=== PATIENT | male | born 1950 | race Caucasian/White ===

== ENCOUNTER → 2023-12-14 08:23 | Outpatient (REF) | payer MEDICARE, OTHER, SELFPAY | LOC: RCS 08:23 | PROVIDERS: ATTENDING PHYSICIAN Internal Medicine Cardiovascular Disease; FAMILY PHYSICIAN Family Medicine | DX: I25.10 Atherosclerotic heart disease of native coronary artery without angina pectoris (principal) | CPT/HCPCS: 93017; 93350 ==

== ENCOUNTER → 2025-01-02 08:02 | Outpatient (REF) | payer MEDICARE, OTHER, SELFPAY | LOC: RCS 08:02 | PROVIDERS: ATTENDING PHYSICIAN Internal Medicine Cardiovascular Disease; FAMILY PHYSICIAN Family Medicine | DX: I35.0 Nonrheumatic aortic (valve) stenosis (principal) | CPT/HCPCS: 93306 ==

== ENCOUNTER → 2025-01-15 10:49 | Outpatient (REF) | payer MEDICARE, OTHER, SELFPAY ==
[2025-01-15 11:14] LABS: Hematocrit 43.4 % (39.0-52.0); Hemoglobin 15.1 g/dL (13.0-18.0); Mean Corp Hgb Conc. 34.8 g/dL (33.0-37.0); Mean Corpuscular Volume 88.8 fL (80.0-94.0); Nucleated Red Blood Cells % 0 % (-); Platelet Count 170 10^3/uL (130-400); Red Cell Dist. Width 13.2 % (11.5-14.5)
[2025-01-15 11:37] LABS: ALT (SGPT) 18 U/L (0-50); AST (SGOT) 20 U/L (17-59); Albumin 4.2 g/dl (3.5-5.0); Alkaline Phosphatase 73 U/L (38-126); Blood Urea Nitrogen 16 mg/dl (9-20); Calcium 9.6 mg/dl (8.4-10.2); Carbon Dioxide 24 mmol/L (22-30); Chloride 110 mmol/L (98-107); Glucose 111 mg/dl (70-99); Potassium 4.7 mmol/L (3.5-5.1); Sodium 139 mmol/L (135-145); Total Protein 7.2 g/dl (6.3-8.2); eGFR > 60.00
== END ==
LOC: SDSPAT 10:49
PROVIDERS: ATTENDING PHYSICIAN Internal Medicine Interventional Cardiology; FAMILY PHYSICIAN Family Medicine; OTHER PHYSICIAN Internal Medicine Cardiovascular Disease
DX: I35.0 Nonrheumatic aortic (valve) stenosis (principal)
CPT/HCPCS: 36415; 80053; 85025; 93005

== ENCOUNTER 2025-01-23 07:21 | Day surgery (SDC) | payer MEDICARE, OTHER, SELFPAY ==
[2025-01-15 10:57] VITALS: BMI 31.1
[2025-01-23 07:45] VITALS: BP 117/95
[2025-01-23 07:53] VITALS: BP 117/95
[2025-01-23] MEDS: NSS 278 ML IV (08:43)
[2025-01-23 10:08] LABS: ACT-LR - POC 218 Seconds (116-155)
[2025-01-23 10:23] VITALS: BP 109/78
[2025-01-23 10:53] VITALS: BP 108/88
--- NOTE | 2025-01-23 16:53 | ITS.CL.CATH ---
[employer] Specialist - Catheterization
Cardiac Catheterization
Procedure Report:
RIGHT AND LEFT HEART STUDY
Date of Procedure: January 23, 2025
Referring: Dr. Donald Gramajo
PROCEDURES:
1. Right heart catheterization
2. Coronary angiography
INDICATION: This is a 74-year-old gentleman with a past medical history notable for coronary artery disease. In October 2017 he underwent successful stenting of the first diagonal branch with a 2.5 x 16 mm Promus stent and successful stenting of the
very proximal to mid LAD with overlapping 2.75 x 16 mm and 2.75 x 24 mm Promus stents that were implanted at nominal pressures and postdilated to high pressures with a 3.0 mm noncompliant balloon. He returned several days later and underwent
successful stenting of the distal RCA with a 3.5 x 16 mm Promus stent that was implanted at nominal pressures and postdilated to high pressures with a 3.75 mm noncompliant balloon.
He has a history of aortic stenosis and his most recent echocardiogram was notable for an estimated ejection fraction of 55-60%. The aortic valve was thickened and calcified with restricted leaflet mobility. The peak and mean gradients were 69 and
42 mmHg respectively with an estimated aortic valve area 0.7 cm�.
Additional history is notable for the recent development of substernal chest pressure during periods of physical exertion.
ACCESS: Right radial artery, 6 Malagasy sheath and right brachial vein, 6 Malagasy sheath
HEMODYNAMICS : mmHg
RA (m) : 12
RV (s/d) : 38/7, 14
PA (s/d, m) : 35/15, 24
PCWP (m) : 19
AO (s/d, m) : 137/66, 95
Estimated Madie Cardiac Output: 6.4 L / min and Cardiac Index: 3.0 L/ min / m-2
Systemic vascular resistance: 13 Wood units or 1037 gyjlf-rbk-td(-5)
CORONARY FINDINGS :
Dominance: Right
LEFT MAIN: Normal
LEFT ANTERIOR DESCENDING: The LAD arises normally from the left main. There are overlapping LAD stents from the origin of the LAD to the mid LAD. The proximal LAD stent has 50% in-stent restenosis. The overlapping stents fpc a large first
diagonal branch. The mid to distal LAD has luminal irregularities but no focal obstructive high-grade stenosis. The diagonal branch is large. There is a 90% ostial stenosis as the diagonal arises from the LAD and there is a focal 80% in-stent
area of restenosis.
CIRCUMFLEX: The circumflex is a medium caliber nondominant vessel and has minor irregularities over its course
RIGHT CORONARY ARTERY: The right coronary artery is a large-caliber dominant vessel with a high anterior origin. An AL-1 diagnostic catheter was required to engage the origin of the RCA with significant pressure dampening upon engagement. The was
lack of reflux around the catheter and associated pressure dampening is highly suggestive of a significant ostial stenosis. Angiographically there appears to be at least a 70% ostial stenosis. The mid RCA has diffuse luminal irregularities. There
is a stent in the distal RCA extending to a large posterolateral branch. The PDA is jailed by the stent. The ostium of the PDA has a 60-70% stenosis.
SEDATION: 28 minutes of procedural sedation was utilized. An independent director medical economics was present to assist with and help manage the patient's level of consciousness and physiologic status
RADIATION SUMMARY: Fluoro Time (min): 7.8, Dose (mGy): 643, DAP (Gy.cm2) : 48.8
CONCLUSIONS
1. Severe aortic stenosis by echocardiogram with mean aortic valve gradient of 42 mmHg
2. Multivessel coronary artery disease. There are overlapping stents from the ostium through the mid LAD. There is moderate in-stent restenosis in the proximal LAD with associated 50% in-stent restenosis. There is also new significance
atherosclerotic disease at the origin of the diagonal branch and significant in-stent restenosis in the diagonal stent. There is also additional new coronary disease at the origin of the RCA with significant pressure dampening upon engagement of a 6
Malagasy diagnostic catheter. The origin of the PDA is jailed as a 60-70% stenosis at its origin
RECOMMENDATIONS
1. Refer for CT surgical evaluation to consider coronary artery bypass grafting and aortic valve replacement
Copy to: Dr. Donald Gramajo
== END 2025-01-23 13:49 | disposition home or self-care (01) ==
LOC: CATH 07:21
PROVIDERS: ATTENDING PHYSICIAN Internal Medicine Interventional Cardiology; FAMILY PHYSICIAN Family Medicine; REFERRING PHYSICIAN Family Medicine
DX: I25.10 Atherosclerotic heart disease of native coronary artery without angina pectoris (principal); Z95.5 Presence of coronary angioplasty implant and graft; I35.0 Nonrheumatic aortic (valve) stenosis; I10 Essential (primary) hypertension; E78.5 Hyperlipidemia, unspecified; K21.9 Gastro-esophageal reflux disease without esophagitis; M19.90 Unspecified osteoarthritis, unspecified site; Z82.49 Family history of ischemic heart disease and other diseases of the circulatory system; Z80.3 Family history of malignant neoplasm of breast; Z79.82 Long term (current) use of aspirin
CPT/HCPCS: 99152; 99153; C1769; C1894; 93456; Q9967

== ENCOUNTER → 2025-02-04 09:00 | Outpatient (REF) | payer MEDICARE, OTHER, SELFPAY | LOC: RAD 09:00 | PROVIDERS: ATTENDING PHYSICIAN Nurse Practitioner Acute Care; FAMILY PHYSICIAN Family Medicine | DX: I35.0 Nonrheumatic aortic (valve) stenosis (principal) | CPT/HCPCS: 74174; 75572; Q9967 ==

== ENCOUNTER 2025-02-25 05:07 | Inpatient (IN) | payer MEDICARE, OTHER, SELFPAY ==
[2025-02-20 08:09] VITALS: BMI 30.4
[2025-02-20 08:52] LABS: Urine Character Clear (Clear)
[2025-02-20 08:52] LABS: Hematocrit 42.8 % (39.0-52.0); Hemoglobin 14.7 g/dL (13.0-18.0); Mean Corp Hgb Conc. 34.3 g/dL (33.0-37.0); Mean Corpuscular Volume 90.3 fL (80.0-94.0); Nucleated Red Blood Cells % 0 % (-); Platelet Count 165 10^3/uL (130-400); Red Cell Dist. Width 13.2 % (11.5-14.5)
[2025-02-20 08:57] LABS: INR 0.96; PT 13.1 Sec (11.4-14.6)
[2025-02-20 09:08] LABS: ALT (SGPT) 21 U/L (0-50); AST (SGOT) 22 U/L (17-59); Albumin 4.4 g/dl (3.5-5.0); Alkaline Phosphatase 79 U/L (38-126); Blood Urea Nitrogen 15 mg/dl (9-20); Calcium 9.4 mg/dl (8.4-10.2); Carbon Dioxide 27 mmol/L (22-30); Chloride 106 mmol/L (98-107); Estimated Creatinine Clearance 91 ml/min; Glucose 101 mg/dl (70-99); Potassium 5.0 mmol/L (3.5-5.1); Sodium 139 mmol/L (135-145); Total Protein 7.2 g/dl (6.3-8.2); eGFR > 60.00
--- NOTE | 2025-02-20 09:32 | CM ---
Met with Mr. and Mrs. Kang in [facility]. He states prior to admission he resides with his spouse in a two story home with two steps to enter. He states he has a full flight of steps to get to bedroom/full bathroom. He states he has a powder room on
the first floor. He states prior to admission he was independent with ambulation and adls He states he does not have any DME in the home. He states he has a prescription plan and uses [facility]. His spouse states she will be home to assist in
his care if needed. The discharge plan is to return home with his spouse and a home visit by the Transitional Care Nurse when medically stable.
We reviewed pre-op and post-op routines. We reviewed the shower instructions. He has the soap, written instructions and the Cardiothoracic Surgery Educational Booklet. We also reviewed restrictions including sternal precautions and driving
restrictions. We discussed a home visit by the Transitional Care Nurse. He is agreeable to a home visit. The plan is AVR and CABG on Tuesday, February 25, 2025.
[2025-02-20 13:32] LABS: Glycohemoglobin (HgbA1c) 5.3 % (4.0-5.6)
[2025-02-25] VITALS (21 sets, daily range): BP systolic 85–156; BP diastolic 42–97; BMI 28.1
[2025-02-25] MEDS: BACTROBAN 2% OINTMENT 1 APPLIC NASAL ×2 (05:44→19:27)
[2025-02-25] MEDS: PROTONIX 40 MG PO (05:45)
[2025-02-25] MEDS: MAGNESIUM OXIDE 500 MG PO (05:45)
[2025-02-25] MEDS: LOPRESSOR 25 MG PO (05:45)
--- NOTE | 2025-02-25 06:11 | W.CVOR.SURPR ---
[facility] Surgeon Immed Pre Op
-
I have examined this patient prior to performance of the scheduled procedure.
The patient's condition is unchanged from the time of the dictated/written History and
Physical and the patient is able to undergo the scheduled procedure.
AVR CABG LAAE
[2025-02-25 07:12] LABS: ACT+ - POC 120 Seconds (82-134)
[2025-02-25 07:25] LABS: Urine Character Clear (Clear)
[2025-02-25 07:47] LABS: Urine Urothelial Cell 16-20 /LPF (FEW)
[2025-02-25 07:50] LABS: Urine White Cell 0-2 /HPF (0-5)
--- NOTE | 2025-02-25 08:41 | CM ---
Reviewed chart. Mr. Kang is in the operating room today. Prior to admission he resides with his spouse in a two story home with two steps to enter. He has a full flight of steps to get to bedroom/full bathroom. He has a powder room on the first
floor. Prior to admission he was independent with ambulation and adls. He does not have any DME in the home. He has a prescription plan with [facility]. His spouse will be home to assist in his care if needed. Medical work-up in progress. The
discharge plan is to return home with his spouse and a home visit by the Transitional Care Nurse when medically stable.
[2025-02-25 08:48] LABS: ACT+ - POC 537 Seconds (82-134)
[2025-02-25 09:02] LABS: ACT+ - POC 532 Seconds (82-134)
[2025-02-25 09:12] LABS: B.E. - POC -0.9 mmol/L; Glucose - POC 94 mg/dl (70-99); HCO3 - POC 24 mmol/L (21-28); Hematocrit - POC 39 % PCV (42-52); Hemodilution- POC No; Hemoglobin Calculated - POC 13.1; Ionized Calcium - POC 1.20 mmol/L (1.15-1.33); Lactate - POC < 0.30 mmol/L (0.36-0.75); O2 Saturation %Calculated-POC 100.0 % (94-98); PCO2 - POC 39 mmHg (35-48); PO2 - POC 409 mmHg (83-108); Potassium - POC 3.6 mmol/L (3.5-5.1); Sodium - POC 142 mmol/L (136-145); Specimen Type - POC Arterial; pH - POC 7.39 (7.35-7.45)
[2025-02-25 09:24] LABS: ACT+ - POC 484 Seconds (82-134)
[2025-02-25 09:40] LABS: ACT+ - POC 624 Seconds (82-134)
[2025-02-25 09:52] LABS: ACT+ - POC 644 Seconds (82-134)
[2025-02-25 10:12] LABS: ACT+ - POC 528 Seconds (82-134)
[2025-02-25 10:26] LABS: B.E. - POC 2.0 mmol/L; Glucose - POC 149 mg/dl (70-99); HCO3 - POC 27 mmol/L (21-28); Hematocrit - POC 33 % PCV (42-52); Hemodilution- POC Yes; Hemoglobin Calculated - POC 11.3; Ionized Calcium - POC 1.11 mmol/L (1.15-1.33); Lactate - POC 0.43 mmol/L (0.36-0.75); O2 Saturation %Calculated-POC 100.0 % (94-98); PCO2 - POC 41 mmHg (35-48); PO2 - POC 358 mmHg (83-108); POC Comment CPB; Potassium - POC 5.2 mmol/L (3.5-5.1); Sodium - POC 143 mmol/L (136-145); Specimen Type - POC Arterial; pH - POC 7.42 (7.35-7.45)
[2025-02-25 10:35] LABS: ACT+ - POC 548 Seconds (82-134)
[2025-02-25 10:40] LABS: B.E. - POC 4.3 mmol/L; Glucose - POC 107 mg/dl (70-99); HCO3 - POC 29 mmol/L (21-28); Hematocrit - POC 32 % PCV (42-52); Hemodilution- POC Yes; Hemoglobin Calculated - POC 10.7; Ionized Calcium - POC 1.08 mmol/L (1.15-1.33); Lactate - POC < 0.30 mmol/L (0.36-0.75); O2 Saturation %Calculated-POC 100.0 % (94-98); PCO2 - POC 45 mmHg (35-48); PO2 - POC 457 mmHg (83-108); POC Comment CPB; Potassium - POC 4.4 mmol/L (3.5-5.1); Sodium - POC 142 mmol/L (136-145); Specimen Type - POC Arterial; pH - POC 7.42 (7.35-7.45)
[2025-02-25 10:40] LABS: B.E. - POC 2.5 mmol/L; Glucose - POC 129 mg/dl (70-99); HCO3 - POC 25 mmol/L (21-28); Hematocrit - POC 33 % PCV (42-52); Hemodilution- POC Yes; Hemoglobin Calculated - POC 11.2; Ionized Calcium - POC 1.07 mmol/L (1.15-1.33); Lactate - POC < 0.30 mmol/L (0.36-0.75); O2 Saturation %Calculated-POC 100.0 % (94-98); PCO2 - POC 32 mmHg (35-48); PO2 - POC 458 mmHg (83-108); POC Comment CPB; Potassium - POC 5.0 mmol/L (3.5-5.1); Sodium - POC 141 mmol/L (136-145); Specimen Type - POC Arterial; pH - POC 7.50 (7.35-7.45)
[2025-02-25 10:54] LABS: ACT+ - POC 543 Seconds (82-134)
[2025-02-25 11:00] LABS: B.E. - POC 1.4 mmol/L; Glucose - POC 124 mg/dl (70-99); HCO3 - POC 26 mmol/L (21-28); Hematocrit - POC 34 % PCV (42-52); Hemodilution- POC Yes; Hemoglobin Calculated - POC 11.5; Ionized Calcium - POC 1.12 mmol/L (1.15-1.33); Lactate - POC 0.32 mmol/L (0.36-0.75); O2 Saturation %Calculated-POC 100.0 % (94-98); PCO2 - POC 40 mmHg (35-48); PO2 - POC 406 mmHg (83-108); POC Comment WARM; Potassium - POC 4.6 mmol/L (3.5-5.1); Sodium - POC 146 mmol/L (136-145); Specimen Type - POC Arterial; pH - POC 7.42 (7.35-7.45)
[2025-02-25 11:06] LABS: ACT+ - POC 123 Seconds (82-134)
[2025-02-25 11:08] LABS: B.E. - POC 0.9 mmol/L; Glucose - POC 99 mg/dl (70-99); HCO3 - POC 25 mmol/L (21-28); Hematocrit - POC 30 % PCV (42-52); Hemodilution- POC Yes; Hemoglobin Calculated - POC 10.2; Ionized Calcium - POC 1.30 mmol/L (1.15-1.33); Lactate - POC 0.85 mmol/L (0.36-0.75); O2 Saturation %Calculated-POC 100.0 % (94-98); PCO2 - POC 37 mmHg (35-48); PO2 - POC 396 mmHg (83-108); POC Comment POST; Potassium - POC 3.9 mmol/L (3.5-5.1); Sodium - POC 145 mmol/L (136-145); Specimen Type - POC Arterial; pH - POC 7.44 (7.35-7.45)
--- NOTE | 2025-02-25 11:39 | W.PN.CT.SURG ---
CT Surgery Operative Note
-
CARDIAC SURGERY OPERATIVE REPORT
Preoperative Diagnosis: Aortic valve stenosis with multivessel coronary artery disease status post stenting with in-stent restenosis
Postoperative Diagnosis: Same
Procedure(s) Performed:
1. Standard sternotomy with aortic and right atrial cannulation
2. Left internal mammary artery harvesting
3. Coronary artery bypass grafting x 4 (In situ HUSAIN to LAD, Ao to RSVG to diagonal, Ao to RSVG to RPDA sequential to RPL B)
4. Surgical aortic valve replacement [27 mm bioprosthesis]
5. Left atrial appendage exclusion [35 mm device]
6. Endoscopic saphenous vein harvest, right lower extremity
7. Trans-esophageal echocardiography
Date of Surgery: 02/25/2025
Comorbidities:
1. Severe aortic valve stenosis, functional bicuspid with right noncoronary cusp fusion
2. Multivessel coronary artery disease status post stenting in the past with in-stent restenosis
3. Hypertension
4. Hyperlipidemia
5. History of COVID infection
Attending Surgeon: Julio César Lloyd MD, MS
Assistants: Solomon Rutledge PA-C (present and necessary to assistant sales center manager, endoscopic vein harvest, retraction, suction, exposure, suture management, and wound closure under my direction)
Anesthesiology: Igor Ricardo MD and Melo Brice CRNA
Scrub and Circulating RNs: Cathy Petersen RN, Walter Hyde RN
Merchandising Representative: Tram Peirre CCP
Anesthesia: GETA
EBL: per perfusion records
Products: None
CPB Time: 117 minutes
Aortic Cross Clamp Time: 103 minutes
Indication(s) for Procedures: This is a 74-year-old male with multivessel coronary artery disease and previous stenting in the past. He was found to have significant in-stent restenosis as well as new ostial diagonal stenosis with the diagonal
branch covering a large portion of the anterior lateral wall. He also had new ostial RCA stenosis and some ostial RPDA stenosis. Given the disease pattern of his coronary artery disease and his severe aortic valve stenosis, he was referred to
surgery for revascularization with aortic valve replacement. Given his elevated [id number] score of 2+, he was offered left atrial appendage ligation at time of surgery as well
Aortic Valve Description: Functional bicuspid with right and noncoronary cusp fusion, heavily calcified with infiltration into the annulus circumferentially. Left and right coronary ostia normal anatomic positions. The right coronary ostia had
very bulky ostial atherosclerotic disease surrounding the opening.
Conduit(s) Quality:
HUSAIN -excellent/skeletonized
RSVG -good/moderate varicosities but overall uniform with minimal thickening
Target(s) Quality:
RPLB and PDA -excellent/the RPL B target was quite large easily coming in 2.0 mm probe. A sequential graft was performed here with the vein and had a mean flow approximately 27 cc a minute with a pulse index of 5.4.
Dx -excellent/large size and good quality target, mean flow here was 27 cc a minute with a pulse index of 3.2
LAD -good/diffuse plaque throughout the vessel, a soft spot was able to be identified, mean flow here was 17 cc a minute with a pulse index of 4.2
Findings: LVEF on intraoperative RYAN was 65% and 65% post procedure with no new regional wall motion abnormality. The aortic valve was heavily calcified with a functional bicuspid morphology with fusion of the right and noncoronary cusp. There was
heavy calcium infiltration into the annulus. There is also bulky calcification around the ostium of the RCA. The valve was excised and a total of 14 nonpledgeted 2 Ethibond sutures were placed circumferentially from LVOT through annulus through
sewing cuff of the valve parachuting a 27 mm bioprosthetic valve into place secured with core knots. Here was no prosthetic PVL or AI. Mean gradient across the prosthesis was 6-8 mmHg. The HUSAIN was harvested in a skeletonized fashion. Following
bypass grafting, test dose cardioplegia was given down each distal and confirmed patency and hemostasis. Flow probe was used to assess the flow in the graft which all were acceptable at the end of the case. His left atrial appendage was also
verified to be free of any thrombus or debris preoperatively and found to be totally occlusive postoperatively. After coming off cardiopulmonary bypass, and a short period of ventricular pacing he regained his cahuilla sinus rhythm. Cardiac index
was well over 2 with no inotropic support, he did not require any blood products.
Specimen(s): Aortic valve leaflets.
Prosthesis:
1. 27 Ma Inspira's Resilia aortic valve bioprosthetic, serial #[id number]
2. 35mm left atrial appendage clip, serial #[id number]
Description of Procedure: The patient was taken to the operating room. Their identity and procedure to be performed were verified and they were positioned supine on the operating table. Induction via general anesthesia with endotracheal intubation
was performed and central venous access and arterial monitoring were inserted. A preoperative transesophageal echocardiogram was performed. The patient was then prepped and draped from chin to feet in a sterile fashion. A preoperative time-out was
performed with all members of the team present. A midline chest incision was performed along with median sternotomy. Simultaneous endoscopic access of the right lower extremity for saphenous vein harvest was obtained along with administration of an
initial 5,000 units of IV heparin. A RulTract sternal retractor was positioned to exposure the left internal mammary bed. The mammary was harvested in a skeletonized fashion and found to have good flow. A bulldog clamp was applied to the distal end
of the mammary after dividing it. It was wrapped in a papaverine soaked RayTec and replaced back into the left hemithorax. The RulTract was exchanged for a median sternal retractor. The innominate vein was isolated. Full heparinization was given (a
total of 60,000 units). I created a pericardial well. The aortic cannulation site was chosen where it was soft, pliable, and free of calcium. Cannulation was performed with an arterial cannula in the ascending aorta and a triple-stage venous cannula
through the right atrial appendage. The arterial cannula line had an appropriate bounce and correlating pressures with test dosing. Next, a root vent/antegrade cannula was inserted into the ascending aorta. The ACT was confirmed to be over 400 and
retrograde autologous priming was performed before commencing cardiopulmonary bypass. The pulmonary artery was away from the aorta to facilitate a clamp site. The aortic cross-clamp was placed after decreasing the flow on the bypass and
mean arterial pressure. A total of 1.2L initial dose of antegrade Del-Nido cardioplegia solution was given and planned for re-dosing every 75 minutes as necessary. There was rapid electro-mechanical arrest of the heart at 500-600 cc of cardioplegia.
The left ventricle was observed for distention on echocardiogram and manual palpation. Cold slush was placed into a sponge and topically on the RV while we systemically cooled to 34 degrees centigrade. Once heart was fully arrested is rotated
medially in the left atrial appendage was clipped flush the base.
I positioned the heart to expose the distal right coronary at posterior lateral branch. A skagway blade was used to expose the coronary and perform the arteriotomy. Coronary Collier scissors were used to enlarge the incision. The saphenous vein was
trimmed and beveled to an appropriate size. The distal anastomosis was performed using 7-0 prolene in an end-to-side fashion. Antegrade cardioplegia was administered into the graft. Appropriate hemostasis and flow were confirmed. I then prepared
the RPDA in a similar fashion and prepared the underbelly of the vein graft by making a small incision. A daau-rz-lybn anastomosis was made in a perpendicular fashion to the RPDA and as a sequential graft. The bulldog clamp was placed distally and
cardioplegia was given down the graft antegrade which demonstrated excellent flow and good hemostasis. The graft was measured for length to the aorta and cut. A suitable site on the large diagonal branch was chosen. I was able to feel the previous
stent in place. We dissected and prepared the distal target in a similar fashion. An end-to-side anastomosis was created with a 7-0 prolene. Antegrade cardioplegia was administered into the graft. Appropriate hemostasis and flow were confirmed. The
graft was measured for length to the aorta and cut. A suitable target on the mid/distal left anterior descending was identified. We dissected and prepared the distal target in a similar fashion. We retrieved the HUSAIN from the chest and created a
pericardial opening while being cognizant of the phrenic nerve to facilitate the course of the mammary. The distal end of the mammary was prepped and and the underbelly of the artery was incised and enlarged. We verified orientation and length of
the SHARON and found brisk flow. An ujtz-fj-cits anastomosis was created with a 7-0 prolene. We temporarily released the bulldog clamp on the mammary to inspect flow. Perfusion to the LAD territory was visualized and hemostasis was confirmed. The bull
clamp was replaced on the mammary.
Carbon dioxide was used to flood the field. I turned my attention to the aortic valve and manually identified the location of the right coronary take off. An aortotomy was made approximately 1.5cm above the sinotubular junction. The location of both
left and right coronary vessels were visualized in the root. The aortic valve was inspected and found to be heavily calcified. The leaflets were excised and sent for pathological assessment. The annulus was debrided of any calcium. The root and left
ventricular outflow tract were thoroughly irrigated to remove any debris. A total of 14, nonpledgeted 2-0 ethibond annular sutures were placed [id number] circumferentially. These were brought through the sewing cuff of the prosthetic valve which
as then parachuted into place. The left and right coronary ostia were visualized and were unobstructed by the valve. A Cor-Knot device was used to secure the annular sutures. The valve was inspected and was well seated. The aortotomy was
approximated with 4-0 prolene in two layers. The heart was filled and the root was distended with antegrade cardioplegia to make final assessment of graft length and orientation. I created 2 aortotomies using a #11 blade then a 4.0mm aortic punch
above the aortic suture line. The proximal anastomoses were created in an end-to-side fashion using 6-0 prolene. At the same time, we started to re-warm to 36.5 degrees centigrade. The bulldog clamp was removed from the mammary and temporary bipolar
ventricular pacing wires were placed on the base of the right ventricle. The patient was placed in a Trendelenburg position and flows on bypass were lowered. The aortic cross clamp was removed and flows were slowly brought back up. The aortotomy
appeared hemostatic. All bypass grafts were inspected and were free from kinking or twisting. The distal and proximal anastomoses appeared hemostatic. De-airing maneuvers were performed. Transesophageal echocardiography revealed no paravalvular leak
and appropriate prosthetic function. Once de-airing was satisfactory, the left ventricular and root vents were removed. After verifying acceptable parameters, we initiated weaning from cardiopulmonary bypass. Once we were off cardiopulmonary bypass,
the venous cannulas was clamped and removed. A test dose of protamine was administered and the patient was monitored for any adverse reaction before resuming protamine. Once half of the protamine dose was delivered, pump suckers were turned off and
the systolic blood pressure was lowered for aortic decannulation. The aortic cannula was removed and pursestrings were tied down. All cannulation sites were oversewn with a 4-0 prolene. The aortic line, proximal, and distal coronary anastomoses were
hemostatic. The mammary bed was inspected and hemostasis was confirmed. Once the mediastinum was hemostatic, a 19Fr Ryland drain was placed in the left pleural cavity and two 24Fr Ryland drains were placed within the pericardium. The sternum was
approximated with 4#7 single and 3 #8 double stainless steel wires. Fascia was approximated with #1 vicryl suture. The subcutaneous, dermis and epidermis were closed in layers in a running fashion. The skin wound was cleansed and dressed.
All instrument, sponge, and needle counts were confirmed to be correct x 2 at the end of the operation. The patient was transferred to the cardiac intensive care unit in critical but stable condition.
I, Dr. Julio César Lloyd, was present, scrubbed for, and performed all critical elements of this procedure.
Julio César Lloyd MD, MS
Cardiothoracic Surgeon
[facility]
This operative dictation was created using the [employer] dictation system. Please excuse any grammatical, typographical, or 'sound alike' errors
--- NOTE | 2025-02-25 11:55 | PTCARENOTE ---
Received patient from [facility] at 1155. Pt intubated and sedated on precedex gtt. RAAS -5. PERRLA 2mm. Intubated with 8.0 ETT 24cm at the lip. SIMV 40% 12 550 5. Pt not breathing over the vent at this time. POX 100%. Anterior lung sounds clear. Left
pleural chest tube to -20cm suction draining red fluid. Mediastinal chest tubes x2 y-sited to 1 atrium to -20cm suction draining red fluid. No air leaks, tidaling, crepitus noted. Scant clear sputum via oral cavity. SR with 1st degree AVB and RBBB
on tele with rates in the 60s-70s. BP goal 90-[address] Lloyd. Titrating levo and cardene per orders. Heart tones audible. Epicardial v-wire to back up, thresholds tested, set to 50/10/4. No pacing noted after thresholds completed. Bilateral
radial and DP pulses palpable. No edema noted. CI 1.8, CT PA notified. CVP 6-10. PA pressures low 20s/10s. Abdomen soft, round, nontender. Hypoactive BS. Dodson catheter intact draining adequate amounts of clear yellow urine. Sternal incision
approximated with skin glue, WISAM. CT dressing CDI. Right groin puncture site approximated with skin glue, [employer] RE[employer]TER. Right medial knee incision approximated with skin glue, WILL intact. Right IJ cordis intact with swan floated to 45cm. Left radial ana
intact with appropriate waveform. All lines flushed, leveled, zeroed. Left wrist 18g PIV intact. See MAR for medication administration. See worklist for complete nursing assessment. Post op EKG, labs, and CXR completed.
[2025-02-25 12:11] LABS: Glucose - Point of Care 94 mg/dl (70-99)
[2025-02-25 12:12] LABS: B.E. -1.5 mmol/L; HCO3 22.9 mmol/L (21-28); PCO2 37 mmHg (35-48); PO2 167 mmHg (83-108); Potassium 3.9 mMOL/L (3.5-5.1); Sodium 137 mMOL/L (136-145)
[2025-02-25 12:16] LABS: O2 Therapy 99.5
[2025-02-25 12:17] LABS: Hematocrit 34.2 % (39.0-52.0); Hemoglobin 11.9 g/dL (13.0-18.0); Platelet Count 116 10^3/uL (130-400)
[2025-02-25] MEDS: DILAUDID 0.5 MG IV ×2 (12:22→23:37)
[2025-02-25 12:23] LABS: APTT 33.7 Sec (23.4-35.0); INR 1.53; PT 18.9 Sec (11.4-14.6)
--- NOTE | 2025-02-25 12:29 | W.PN.CARDCBS ---
Addendum entered and electronically signed by Lemuel Birmingham MD 02/25/25 17:34:
I saw and examined the patient.
The [employer]'s note was reviewed and I agree with the note.
Comment: Briefly, 74-year-old man with past medical history of severe aortic stenosis and multivessel CAD who underwent AVR/CABG x 4 earlier today
Seen and examined postoperatively in the CVICU where he remained intubated and sedated and on low-dose Levophed for hemodynamic support
Postop ECG and telemetry show normal sinus rhythm
Warm and well-perfused on exam and appears euvolemic
Filling pressures are reasonable based on invasive hemodynamics
Agree with current cardiac meds; aspirin/Plavix, high intensity statin, amiodarone. Beta-allegra as heart rate/blood pressure will tolerate.
Discussed with nursing
Original Note:
Today's Communication / Plan
-
continue post op care
in SR
Impression / Plan
-
Primary Security Systems Administrator: Dr. Gramajo
Assessment:
s/p CABG x4 In situ HUSAIN to LAD, Ao to RSVG to diagonal, Ao to RSVG to RPDA sequential to RPL B, bioprosthetic #27 AVR, ANKITA clip 02/25/25
Severe , functionally bicuspid
Multivessel CAD by cath 01/23/25 with mod instent restenosis of LAD
History of first diagonal branch PCI, mid LAD PCI x 2
Bifascicular block
Hypertension
Hyperlipidemia
GERD
Osteoarthritis
ECHO 01/02/25: EF 55 to 60%, mild LVH, stage II diastolic dysfunction, MAC, mild MR, severe with peak/mean gradient 69/42 mmHg, PADMINI 0.7 cm�, mild AR
Plan:
-s/p CABG x4 In situ HUSAIN to LAD, Ao to RSVG to diagonal, Ao to RSVG to RPDA sequential to RPL B, bioprosthetic #27 AVR, ANKITA clip 02/25/25
-on yulissa hugger
-intubated, sedated
-on levo @1, wean as able. CI 1.8
-was hyperdynamic intraop, receiving IVF at present as well
-in SR on tele and by review of post op EKG SR with bifascicular block, chronic
-hgb 11.9, plts 116K
-continue post op care
-d/w nursing
Progress Note - Security Systems Administrator
Subjective
Date of Service: February 25, 2025
intubated, sedated
Objective
Labs:
Labs
Hgb 11.9 g/dL (13.0-18.0) L 02/25/25 11:59
Hct 34.2 % (39.0-52.0) L 02/25/25 11:59
Plt Count 116 10^3/uL (130-400) L D 02/25/25 11:59
PT 13.1 Sec (11.4-14.6) 02/20/25 08:20
INR 0.96 02/20/25 08:20
Sodium 139 mmol/L (135-145) 02/20/25 08:20
Potassium 5.0 mmol/L (3.5-5.1) 02/20/25 08:20
BUN 15 mg/dl (9-20) 02/20/25 08:20
Creatinine 0.8 mg/dL (0.7-1.3) 02/20/25 08:20
Glucose 101 mg/dl (70-99) H 02/20/25 08:20
Vital Signs and I&O:
Vital Signs
Temp Pulse Resp BP Pulse Ox
96.9 F L 68 12 100
02/25/25 12:00 02/25/25 12:06 02/25/25 12:00 02/25/25 12:00 02/25/25 12:06
Vital Signs
Temp Pulse Resp BP Pulse Ox
96.9 F L 68 12 100
02/25/25 12:00 02/25/25 12:06 02/25/25 12:00 02/25/25 12:00 02/25/25 12:06
Intake & Output
02/23/25 02/24/25 02/25/25 02/26/25
07:59 07:59 07:59 07:59
Intake Total 318.1 / 318.1
Output Total 190 / 190
Balance 128.1 / 128.1
Physical Exam
Physical Exam
GEN: No distress, intubated. on bairhugger
HEENT: supple, mmm
LUNGS: CTA B/L, no wheezes
CV: Reg, S1/S2, no murmur
ABD: soft, NT/ND, hypoactive BS
EXT: No cyanosis, clubbing, edema. RLE joanie wrap in place
NEURO: Gross non-focal
SKIN: Warm, pink, dry. No rash. Sternotomy incision c/d/i. CTs in place
: vazquez
[2025-02-25] MEDS: ANCEF 10 IV ×2 (12:34)
[2025-02-25] MEDS: NSS 500 IV (12:34)
[2025-02-25] MEDS: LR 250 ML IV ×3 (12:34→13:41)
[2025-02-25] MEDS: KCL 50 IV ×2 (12:35→13:41)
[2025-02-25 12:45] LABS: Blood Urea Nitrogen 13 mg/dl (9-20); Estimated Creatinine Clearance 97 ml/min; Glucose 93 mg/dl (70-99); Magnesium 3.2 mg/dl (1.6-2.3)
[2025-02-25 13:14] LABS: Glucose - Point of Care 120 mg/dl (70-99)
--- NOTE | 2025-02-25 13:15 | PTCARENOTE ---
CI 1.66, CT PA notified. Orders for MVO2, drawn and sent.
--- NOTE | 2025-02-25 13:36 | CON.INTV ---
Consultation
Consultation Request
Date/Time Consultation Requested: 02/25/2025
Date/Time Consultation Performed: 02/25/2025
Medical History
-
Chief Complaint: Dyspnea
History of Present Illness:
Patient currently intubated, mechanically ventilated and sedated. History mostly obtained from patient's records. Reportedly patient has a known history of coronary artery disease and he recently had a cardiac catheterization in preparation for
possible transcatheter intervention for aortic valve. Patient noted to have prior stents placed in mid LAD with restenosis. Patient found to have fairly extensive coronary artery disease as well as aortic stenosis. Subsequently patient was
referred to cardiothoracic surgery for further input. On 02/25 patient had coronary artery bypass graft performed along with bioprosthetic aortic valve replacement and left atrial appendage exclusion. Postprocedure, patient was admitted to CVICU
and skilled labor consultation was requested for further input.
Past medical history. Gastroesophageal reflux disease, hypertension, hyperlipidemia, coronary artery disease, aortic stenosis.
Past surgical history. Prior history of skull fracture, eyelid surgery. History of PCI in 2018.
Family history. History of coronary artery disease in the family.
Social history. No history of smoking.
Allergies / Home Medications
Allergies
Allergy/AdvReac Type Severity Reaction Status Date / Time
No Known Allergies Allergy Verified 02/18/25 13:12
Home Medications
�Medication �Instructions �Recorded �Confirmed �Last Taken �Type
aspirin 81 mg chewable tablet 81 mg PO DAILY 10/19/17 02/25/25 02/22/25 History
81
Bifidobacterium longum 10 million 10,000 cell PO DAILY 01/13/25 02/25/25 02/19/25 History
cell capsule (Align (B.longum))
Liver Support Function 1 cap PO DAILY 01/13/25 02/25/25 02/19/25 History
ascorbic acid (vitamin C) 1,000 mg 1,000 mg PO DAILY 01/13/25 02/25/25 02/18/25 History
tablet (Vitamin C)
atorvastatin 40 mg tablet 40 mg PO QPM 01/13/25 02/25/25 02/24/25 History
40
cholecalciferol (vitamin D3) 125 125 mcg PO DAILY 01/13/25 02/25/25 02/19/25 History
mcg (5,000 unit) tablet (Vitamin
D3)
coenzyme Q10 100 mg capsule 300 mg PO 01/13/25 02/25/25 02/19/25 History
(CoQ-10)
glucosamine-chondroitin 250 mg-200 2 tab PO DAILY 01/13/25 02/25/25 02/19/25 History
mg tablet
magnesium glycinate 120 mg (as 240 mg PO 01/13/25 02/25/25 02/19/25 History
glycinate) capsule
mecobalamin (vitamin B12) 5,000 5,000 mcg PO DAILY 01/13/25 02/25/25 02/19/25 History
mcg chewable tablet
metoprolol succinate 50 mg 50 mg PO QPM 01/13/25 02/25/25 02/24/25 17:00 History
tablet,extended release 24 hr
omega-3 fatty acids 1,400 mg PO DAILY 01/13/25 02/25/25 02/19/25 History
saw palmetto 160 mg capsule 320 mg PO DAILY 01/13/25 02/25/25 02/19/25 History
turmeric root extract 750 mg 750 mg PO DAILY 01/13/25 02/25/25 02/19/25 History
capsule
zinc acetate 50 mg (zinc) capsule 50 mg PO DAILY 01/13/25 02/25/25 02/19/25 History
Total Beets 2 gummy PO DAILY 02/18/25 02/25/25 02/19/25 History
amlodipine 2.5 mg tablet 2.5 mg PO 02/18/25 02/25/25 02/22/25 History
2.5
colostrum, bovine 1 dose PO DAILY 02/18/25 02/25/25 02/19/25 History
Review of Systems
-
Unable to Obtain full review of systems at this time due to: Patient Intubation
Vitals / Labs / Diagnostic Testing
Vital Signs
Temp Pulse Resp BP Pulse Ox
97.6 F 71 12 85/54 99
02/25/25 13:00 02/25/25 13:10 02/25/25 13:00 02/25/25 13:10 02/25/25 13:10
Lab Data
02/25/25 11:59
Laboratory Results
02/25/25 02/25/25
11:59 12:00
PT 18.9 H
INR 1.53
APTT 33.7
pH 7.40
pCO2 37
pO2 167 H
HCO3 22.9
O2 Delivery Level 99.5
Diagnostic Testing:
Physical Exam
-
HEENT: Normocephalic
Cardiovascular: S1/S2
Respiratory: Clear
GI: Soft and Non Distended
Neurology: Other (Sedated, Precedex infusing currently.)
Skin: Warm
General: Comfortable
Assessment
-
74-year-old gentleman with history of severe coronary artery disease, multivessel as well as aortic stenosis, s/p, coronary artery bypass graft, bioprosthetic aortic valve replacement and left atrial appendage exclusion, POD # 0
Titrate off pressors per protocol. Currently on Levophed @ 3. Current MAP of 65, CVP of 12.
ECHO reviewed with normal EF, severe and diastolic dysfunction
PA catheter readings reviewed, /, mean pressure 24.
Management of chest tubes per primary service
Intubated/sedated, initiate SAT when able. Precedex infusing.
Pain control
RASS goal of 0 to -1
Intubated for procedure, SBT trial when patient able to spontaneously breath
Current vent settings: SIMV. 550/12/40%/5 with PS 5. Saturating 99%.
AB.40/37/167
CXR with no obvious opacities/infiltrates, low lung volumes, ETT in good position, lines/tubes in place
Extubate per protocol
Maintain supplement oxygen as needed
No prior history of pulmonary disease
Prior PFTs reviewed
Can add nebulizers if needed
Aspiration precautions
Encouraged incentive spirometry, OOB/ambulation/early mobility
Advance diet as tolerated following extubation
GI prophylaxis: Protonix
Monitor critical I/O's
Dodson/chest tube output
Hb/platelets postoperatively, mild drift
Trend CBC for now
Can transfuse if indicated for Hb <7, plt <50 in surgical patients
DVT prophylaxis including SCDs
Insulin protocol initiated and ongoing
Transition to SQ/off as indicated per team
Other medical diagnoses:
- HTN
- HLD
- CAD (h/o PCI), s/p CABG 02/2025
- Severe . s/p AVR (Bioprosthetic) 02/2025
- GERD
Critical Care time 62 mins -- The patient is admitted for acute critical illness for the treatment of vital organ failure and/or prevention of further life-threatening conditions. Total care includes time spent in review of history, physical exam,
medications, hemodynamic/ventilator parameters, laboratory data, imaging and discussion with house staff, pharmacy, respiratory therapy, shank maker, and nursing
Data:
[facility] 01/2025: 1. Severe aortic stenosis by echocardiogram with mean aortic valve gradient of 42 mmHg
2. Multivessel coronary artery disease. There are overlapping stents from the ostium through the mid LAD. There is moderate in-stent restenosis in the proximal LAD with associated 50% in-stent restenosis. There is also new significance
atherosclerotic disease at the origin of the diagonal branch and significant in-stent restenosis in the diagonal stent. There is also additional new coronary disease at the origin of the RCA with significant pressure dampening upon engagement of a 6
Indian diagnostic catheter. The origin of the PDA is jailed as a 60-70% stenosis at its origin
[facility] 01/2025: PA 35/15, mPA 24
PCWP 19. CO 6.4, CI 3.0
ECHO 12/2024: Normal left ventricular size and systolic function. No regional wall motion
abnormalities are seen. LV ejection fraction is 55-60% by visual assessment.
Mild left ventricular hypertrophy. Normal diastolic function. Stage II
diastolic dysfunction suggestive of abnormal relaxation and increased filling
pressures.
Normal right ventricular size. Normal right ventricular systolic function.
Mitral annular calcification. Mitral valve opens normally. Mild mitral
regurgitation.
Thickened aortic valve with restricted leaflet motion. Severe aortic stenosis.
Peak/mean gradients are 69/42mmHg. The valve area by continuity equation is
0.7cm sq, using a LVOT of 2.0cm. Mild aortic regurgitation.
When compared with prior study on 01/26/2023, aortic stenosis is now severe
69/42 mmHg (previously mild-moderate 43/23 mmHg); no other significant changes.
CHEST CTA: 01/2025
1. Severe calcification in the aortic valve.
2. Severe calcific atherosclerotic plaque in the coronary arteries.
3. Severe discogenic degenerative disease at C5/C6 and C6/C7.
4. Severe osteoarthritis of the left glenohumeral joint.
ABDOMEN and PELVIS CTA: 01/2025
1. Moderate tortuosity of the common iliac arteries containing mild to moderate calcific atherosclerotic plaque.
2. No stenosis in the external iliac or common femoral arteries.
3. Moderate to severe calcific atherosclerotic plaque in the abdominal aorta.
4. Mildly enlarged prostate gland.
5. Severe multilevel lumbar discogenic degenerative disease.
6. Mild to moderate right convex curvature of the midlumbar spine.
[2025-02-25] MEDS: TYLENOL PO (13:43)
[2025-02-25 14:08] LABS: Glucose - Point of Care 102 mg/dl (70-99)
--- NOTE | 2025-02-25 14:38 | PTCARENOTE ---
Pt awake. Able to shake his head appropriately to orientation questions. Squeeze hands and wiggle toes. Breathing over the vent. RT notified and placed pt on cpap trial. Pt tolerating. POX 96%.
[2025-02-25 15:05] LABS: Glucose - Point of Care 104 mg/dl (70-99)
--- NOTE | 2025-02-25 15:14 | PTCARENOTE ---
Pt bathed with CHG wipes. Turned from side to side without significant dump in chest tubes. Pt tolerated.
[2025-02-25] MEDS: PACERONE PO (15:24)
[2025-02-25] MEDS: NEURONTIN PO (15:24)
[2025-02-25 15:28] LABS: B.E. -3.5 mmol/L; HCO3 22.1 mmol/L (21-28); O2 Saturation % 99.6 % (94-98); PCO2 41 mmHg (35-48); PO2 132 mmHg (83-108); Potassium 4.6 mMOL/L (3.5-5.1)
[2025-02-25] MEDS: CALCIUM GLUCONATE 100 IV (15:32)
--- NOTE | 2025-02-25 15:40 | PTCARENOTE ---
CPAP ABG reviewed with CT PA, orders to extubate patient. RT at bedside to extubate patient to 6L NC. Pt able to say his name, . Oriented x4. Denies pain and nausea at this time. IS completed 1000mL achieved.
--- NOTE | 2025-02-25 15:40 | RESPNOTE ---
Patient extubated following cpap trial and ABG per protocol. Incentive spirometry instruction completed.
[2025-02-25 16:12] LABS: Glucose - Point of Care 127 mg/dl (70-99)
[2025-02-25 16:23] LABS: Hematocrit 36.0 % (39.0-52.0); Hemoglobin 12.5 g/dL (13.0-18.0); Platelet Count 141 10^3/uL (130-400)
--- NOTE | 2025-02-25 16:30 | PTCARENOTE ---
Pt reassessed. Drowsy but oriented x4. Rates sternal pain /-see MAR. Denies nausea. PIKE with equal strength throughout. SR with 1st degree AVB and RBBB with rates in the 80s. BP stable 98/48. POX 100% on RA. CT output WNL. CI 2.74. Dodson draining
adequate amounts of clear yellow urine. All lines remain intact.
[2025-02-25] MEDS: LOW STRENGTH ASPIRIN 81 MG PO (16:39)
[2025-02-25] MEDS: ROXICODONE 5 MG PO ×2 (16:39→21:50)
[2025-02-25 18:05] LABS: Glucose - Point of Care 113 mg/dl (70-99)
[2025-02-25] MEDS: ANCEF 5 IV (19:10)
[2025-02-25] MEDS: SENOKOT-S PO (19:27)
[2025-02-25] MEDS: DILAUDID 0.25 MG IV (19:27)
--- NOTE | 2025-02-25 19:46 | PTCARENOTE ---
received pt from previous rn. Pt AAOx4, VSS, pt c/o incision pain. See MAR. NSR w/ First degree AVB and RBBB. HR 70s. +pulses, V-wire set to VVI 30/4. lungs diminished throughout. pox 98% on 2L NC. CTx3 set to -20cm suction. no air
leaks/crepitus/tidaling. hypoactive bs. Abd soft nontender. Dodson draining clear yellow urine. all surgical sites intact. CT dressing c/d/i. Pivx1 intact. RIJ cordis w/ swan floated to 45. Left radial ana intact with appropriate waveform. All
lines flushed, leveled, zeroed. plan of care discussed. call ferguson within reach.
[2025-02-25 20:07] LABS: Glucose - Point of Care 103 mg/dl (70-99)
[2025-02-25 21:11] LABS: B.E. -4.6 mmol/L; HCO3 20.3 mmol/L (21-28); O2 Saturation % 99.1 % (94-98); PCO2 36 mmHg (35-48); PO2 106 mmHg (83-108); Potassium 4.6 mMOL/L (3.5-5.1)
[2025-02-25] MEDS: LIPITOR 40 MG PO (21:50)
[2025-02-25] MEDS: NEURONTIN 100 MG PO (21:51)
[2025-02-25] MEDS: TYLENOL 1000 MG PO (21:51)
[2025-02-25] MEDS: PACERONE 200 MG PO (21:51)
[2025-02-25] MEDS: SODIUM BICARBONATE 50 MEQ IV (21:57)
[2025-02-25 22:00] LABS: Glucose - Point of Care 115 mg/dl (70-99)
[2025-02-25 23:54] LABS: Glucose - Point of Care 97 mg/dl (70-99)
[2025-02-26] VITALS (24 sets, daily range): BP systolic 91–137; BP diastolic 46–71; PULSE 69; O2SAT 99; BMI 28.4
--- NOTE | 2025-02-26 00:34 | PTCARENOTE ---
NSR per tele monitor, Cardene titrated per order. assessment remains unchanged otherwise.
[2025-02-26] MEDS: ROXICODONE 5 MG PO ×4 (01:51→23:39)
[2025-02-26 02:08] LABS: Glucose - Point of Care 151 mg/dl (70-99)
[2025-02-26 02:08] LABS: Glucose - Point of Care 131 mg/dl (70-99)
[2025-02-26 02:11] LABS: Glucose - Point of Care 127 mg/dl (70-99)
[2025-02-26] MEDS: ANCEF 5 IV ×2 (03:07→09:54)
[2025-02-26] MEDS: DILAUDID 0.5 MG IV (03:07)
[2025-02-26] MEDS: CARDENE 200 IV (03:09)
[2025-02-26 03:18] LABS: Blood Urea Nitrogen 17 mg/dl (9-20); Calcium 8.2 mg/dl (8.4-10.2); Carbon Dioxide 21 mmol/L (22-30); Chloride 112 mmol/L (98-107); Estimated Creatinine Clearance 97 ml/min; Glucose 124 mg/dl (70-99); Magnesium 2.1 mg/dl (1.6-2.3); Potassium 4.4 mmol/L (3.5-5.1); Sodium 138 mmol/L (135-145); eGFR > 60.00
[2025-02-26 03:42] LABS: Hematocrit 32.7 % (39.0-52.0); Hemoglobin 11.2 g/dL (13.0-18.0); Mean Corp Hgb Conc. 34.3 g/dL (33.0-37.0); Mean Corpuscular Volume 89.8 fL (80.0-94.0); Platelet Count 116 10^3/uL (130-400); Red Cell Dist. Width 13.6 % (11.5-14.5)
[2025-02-26 04:11] LABS: Glucose - Point of Care 127 mg/dl (70-99)
[2025-02-26] MEDS: LOPRESSOR 12.5 MG PO ×2 (04:16→20:40)
--- NOTE | 2025-02-26 04:18 | W.PN.CT ---
Today's Communication / Plan
-
-pod #1
-no issues overnight
-CI 2.98, CO 6.17. Drips: alexis Cardene 10
-CT outputs: 2 meds 170/510, L pleur 20/130 in 12/24 hrs
-deline
-d/c Dodson
-d/c insulin
-current meds (ASA, Plavix, Lipitor, Lopressor, Amio, Protonix)
-encourage IS, OOB
Assessment / Plan
-
- s/p Surgical aortic valve replacement [27 mm Ma Inspiris Resilia bioprosthesis]; CABG x4 (In situ HUSAIN to LAD, Ao to RSVG to diagonal, Ao to RSVG to RPDA sequential to RPL B); Left atrial appendage exclusion [35 mm device] on 02/25/25 by
Lloyd, pod #1
- Intraop RYAN: LVEF was 65% pre and post procedure with no new regional wma. No prosthetic PVL or AI. Mean gradient across the prosthesis was 6-8 mmHg. His left atrial appendage was also verified to be free of any thrombus or debris preoperatively
and found to be totally occlusive postoperatively.
- Aortic valve stenosis (bicuspid) with multivessel coronary artery disease, status post LAD stenting with in-stent restenosis
- Hypertension
- Hyperlipidemia
- History of COVID infection
- GERD
- DJD
- Pre-existing RBBB/LAFB
- Acute postop blood loss anemia - stable, no transfusion
- Acute postop thrombocytopenia
- Acute postop pulmonary insufficiency/atelectasis
- Acute postop hypovolemia with subsequent hypervolemia
Discussed patient care with: Nursing and Care Team
Subjective
-
Date of Service: February 25, 2025
Objective Data
-
Lab Results
02/25/25 16:10
02/25/25 11:59
PT 18.9 Sec (11.4-14.6) H 02/25/25 11:59
INR 1.53 02/25/25 11:59
APTT 33.7 Sec (23.4-35.0) 02/25/25 11:59
Vital Signs
Vital Signs
Temp Pulse Resp BP Pulse Ox
99.2 F 70 15 112/54 94
02/25/25 23:00 02/25/25 23:05 02/25/25 23:05 02/25/25 23:00 02/25/25 23:05
CT Intake/Output/Weight
02/25/25 02/25/25 02/26/25
06:59 18:59 06:59
Intake Total 1362.2 / 1819.2 457.0 / 1819.2
Output Total 1020 / 1365 345 / 1365
Balance 342.2 / 454.2 112.0 / 454.2
SaO2: 94
Physical Exam
-
General: Awake and AOx3
Cardiovascular: Regular rate & rhythm, No Murmurs and Rub
Respiratory: Decreased Breath Sounds
Sternum: Stable
Incision: Clean, Dry and Intact
Extremities: No Edema (DPs 2+)
Abdomen: soft, nontender, nondistended, +decreased bowel sounds
Data Reviewed
-
Lab Results: Results Reviewed
Medications: Active Meds Reviewed
Chest X-Ray: Report Reviewed and Image Reviewed
ECG: Report Reviewed and Image Reviewed
--- NOTE | 2025-02-26 05:00 | PTCARENOTE ---
A-line and Haider zeng removed.
[2025-02-26 05:58] LABS: Glucose - Point of Care 99 mg/dl (70-99)
[2025-02-26] MEDS: TYLENOL 1000 MG PO ×3 (05:58→22:59)
--- NOTE | 2025-02-26 08:16 | PTCARENOTE ---
assumed care of pt from previous shift RN, sinus rhythm on tele, V wire maintained, VSS. Lungs diminished, pox 96% on RA, coughing and deep breathing encouraged. +bs, DTV, surgical sites stable, CT x3 w red drainage. plan of care reviewed and
questions encouraged.
[2025-02-26] MEDS: PLAVIX 75 MG PO (08:29)
[2025-02-26] MEDS: PACERONE 200 MG PO ×3 (08:29→22:58)
[2025-02-26] MEDS: SENOKOT-S 1 TABLET PO ×2 (08:29→20:41)
[2025-02-26] MEDS: LOW STRENGTH ASPIRIN 81 MG PO (08:29)
[2025-02-26] MEDS: MAGNESIUM OXIDE 500 MG PO ×2 (08:29→20:41)
[2025-02-26] MEDS: PROTONIX 40 MG PO (08:29)
[2025-02-26] MEDS: LIDOCAINE 4% PATCH 1 PATCH TOPICAL (08:29)
[2025-02-26] MEDS: NEURONTIN 100 MG PO ×3 (08:29→22:59)
[2025-02-26] MEDS: BACTROBAN 2% OINTMENT 1 APPLIC NASAL ×2 (08:30→20:40)
[2025-02-26 08:34] LABS: Glucose - Point of Care 143 mg/dl (70-99)
[2025-02-26] MEDS: COLCHICINE 0.3 MG PO (09:50)
[2025-02-26] MEDS: LASIX 20 MG IV (09:54)
[2025-02-26] MEDS: KCL 10 MEQ PO (09:54)
--- NOTE | 2025-02-26 10:03 | W.PN.ANS.POP ---
Anesthesia Post Operative
- Anesthesia Post Op Note
Vital Signs Stable-See Nursing Note: Yes
Airway Patent: Yes
Adequate Pain Control: Yes
Change in Mental Status: No
Current Postoperative Nausea & Vomiting: No
Anesthesia Complications: No
General Anesthetic Recall: No
Unplanned Admission: No
Post Op Hydration Adequate: Yes
--- NOTE | 2025-02-26 10:15 | PTCARENOTE ---
assisted pt from chair to bed, LP CT removed as ordered.
[2025-02-26] MEDS: NSS IV (10:16)
[2025-02-26 10:38] LABS: Glucose - Point of Care 141 mg/dl (70-99)
--- NOTE | 2025-02-26 12:10 | CM ---
Reviewed chart. Met with and Mrs. Kang and their daughter to review discharge plans. He states he is feeling okay. Prior to admission he resides with his spouse in a two story home with two steps to enter. He has a full flight of step to get to
bedroom/full bathroom. He has a powder room on the first floor. Prior to admission he was independent with ambulation and adls. He does not have any DME in the home. He has a prescription plan and uses [facility]. His spouse will be home to assist
in his care if needed. Medical work-up n progress. The discharge plan is to return home with his spouse and a home visit by the Transitional Care Nurse when medically stable.
--- NOTE | 2025-02-26 12:50 | W.PN.INTV ---
Addendum entered and electronically signed by Jin Huerta MD 02/27/25 10:24:
Patient transferring to telemetry floor. Twister Tender service will sign off, please call as needed
Original Note:
Today's Communication / Plan
Recommendations
- Incentive spirometry
- Transition insulin infusion per protocol
- Increase activity as tolerated
Assessment
-
74-year-old gentleman with history of severe coronary artery disease, multivessel as well as aortic stenosis, s/p, coronary artery bypass graft, bioprosthetic aortic valve replacement and left atrial appendage exclusion, POD # 1
Titrated off pressors per protocol. MAP of 80, not requiring any pressor support.
ECHO reviewed with normal EF, severe and diastolic dysfunction
Management of chest tubes per primary service
Patient extubated, currently saturating 95% on room air. Work of breathing normal.
CXR with no obvious opacities/infiltrates
No prior history of pulmonary disease
Prior PFTs reviewed
Can add nebulizers if needed
Aspiration precautions
Encouraged incentive spirometry, OOB/ambulation/early mobility
Advance diet as tolerated following extubation
GI prophylaxis: Protonix
Monitor critical I/O's
Dodson/chest tube output
Hb/platelets postoperatively, mild drift
Trend CBC for now
Can transfuse if indicated for Hb <7, plt <50 in surgical patients
DVT prophylaxis including SCDs
Insulin protocol initiated and ongoing
Transition to SQ/off as indicated per team
Other medical diagnoses:
- HTN
- HLD
- CAD (h/o PCI), s/p CABG 02/2025
- Severe . s/p AVR (Bioprosthetic) 02/2025
- GERD
Critical Care time 37 mins -- The patient is admitted for acute critical illness for the treatment of vital organ failure and/or prevention of further life-threatening conditions. Total care includes time spent in review of history, physical exam,
medications, hemodynamic/ventilator parameters, laboratory data, imaging and discussion with house staff, pharmacy, respiratory therapy, product manager e commerce, and nursing
Data:
[facility] 01/2025: 1. Severe aortic stenosis by echocardiogram with mean aortic valve gradient of 42 mmHg
2. Multivessel coronary artery disease. There are overlapping stents from the ostium through the mid LAD. There is moderate in-stent restenosis in the proximal LAD with associated 50% in-stent restenosis. There is also new significance
atherosclerotic disease at the origin of the diagonal branch and significant in-stent restenosis in the diagonal stent. There is also additional new coronary disease at the origin of the RCA with significant pressure dampening upon engagement of a 6
Portuguese diagnostic catheter. The origin of the PDA is jailed as a 60-70% stenosis at its origin
[facility] 01/2025: PA 35/15, mPA 24
PCWP 19. CO 6.4, CI 3.0
ECHO 12/2024: Normal left ventricular size and systolic function. No regional wall motion
abnormalities are seen. LV ejection fraction is 55-60% by visual assessment.
Mild left ventricular hypertrophy. Normal diastolic function. Stage II
diastolic dysfunction suggestive of abnormal relaxation and increased filling
pressures.
Normal right ventricular size. Normal right ventricular systolic function.
Mitral annular calcification. Mitral valve opens normally. Mild mitral
regurgitation.
Thickened aortic valve with restricted leaflet motion. Severe aortic stenosis.
Peak/mean gradients are 69/42mmHg. The valve area by continuity equation is
0.7cm sq, using a LVOT of 2.0cm. Mild aortic regurgitation.
When compared with prior study on 01/26/2023, aortic stenosis is now severe
69/42 mmHg (previously mild-moderate 43/23 mmHg); no other significant changes.
CHEST CTA: 01/2025
1. Severe calcification in the aortic valve.
2. Severe calcific atherosclerotic plaque in the coronary arteries.
3. Severe discogenic degenerative disease at C5/C6 and C6/C7.
4. Severe osteoarthritis of the left glenohumeral joint.
ABDOMEN and PELVIS CTA: 01/2025
1. Moderate tortuosity of the common iliac arteries containing mild to moderate calcific atherosclerotic plaque.
2. No stenosis in the external iliac or common femoral arteries.
3. Moderate to severe calcific atherosclerotic plaque in the abdominal aorta.
4. Mildly enlarged prostate gland.
5. Severe multilevel lumbar discogenic degenerative disease.
6. Mild to moderate right convex curvature of the midlumbar spine.
Subjective Dataa
Subjective Data
Date of Service:
Date of Service: February 26, 2025
Subjective:
Patient comfortably sitting in bed, in no acute distress.
Review of Systems
Genitourinary: Other (All 14 systems reviewed and negative except as stated above in the history of present illness.)
Objective Data
Data Reviewed
Vital Signs / I&O / Oxygen:
Vital Signs
Temp Pulse Resp BP Pulse Ox
98.2 F 72 16 126/66 95
02/26/25 12:00 02/26/25 12:00 02/26/25 12:00 02/26/25 12:00 02/26/25 12:00
Intake and Output
02/25/25 02/26/25 02/27/25
06:59 06:59 06:59
Intake Total 2283.5 / 2294.3 146.8 / 146.8
Output Total 1745 / 1835 360 / 360
Balance 538.5 / 459.3 -213.2 / -213.2
SaO2 [CPAP/PSV] 96
SaO2 [SIMV] 100
SaO2 95
Nasal Cannula flow liters per 2
minute
Physical Exam
General: Comfortable
HEENT: Normocephalic
Cardiovascular: S1-S2
Respiratory: Clear
GI: Non Distended
Neurology: Awake and Alert
Skin: Warm
Labs/Micro/Reports
Lab Data
02/26/25 02:07
02/26/25 02:07
Laboratory Results
02/25/25 02/25/25
15:19 21:01
pH 7.34 L 7.36
pCO2 41 36
pO2 132 H 106
HCO3 22.1 20.3 L
O2 Delivery Level
[2025-02-26] MEDS: FERRLECIT 110 MG IV (14:10)
--- NOTE | 2025-02-26 14:28 | W.PN.CARDCBS ---
Addendum entered and electronically signed by Barrett Trivedi MD 02/26/25 17:05:
74-year-old man who underwent CABG x 4 with #27 bioprosthetic aortic valve on 02/25/2025 (HUSAIN to LAD, saphenous vein graft to diagonal, saphenous vein graft to PDA and right posterolateral, left atrial clip
PMH: CAD, severe functionally bicuspid, bifascicular heart block, hypertension, hyperlipidemia, GERD, osteoarthritis
Medications: Reviewed, drips are off, amiodarone, aspirin, clopidogrel, metoprolol 12.5 every 12, colchicine
126/66, pulse 72, respiratory rate 16 afebrile, head neck exam unremarkable, lungs are clear, regular rate and rhythm with soft rub, JVD okay, cordis in place, abdomen benign, chest incision and leg incision intact
Hemoglobin 11.2, BUN and creatinine are 17 and 0.7 with a potassium of 4.4
Chest x-ray cardiomegaly, chest tubes clip, interstitial markings, EKG: Sinus rhythm, ST segment changes, LVH, left anterior fascicular block with incomplete right bundle
Impression:
Doing well status post CABG and AVR, now postop day 1
We will continue to follow
Original Note:
Today's Communication / Plan
-
Continue post op care
Impression / Plan
-
Primary Video Network Engineer: Dr. Gramajo
Assessment:
MV CAD by cath 01/23/2025
s/p CABG x4 (In situ HUSAIN to LAD, Ao to RSVG to diagonal, Ao to RSVG to RPDA sequential to RPL B), ANKITA clip 02/25/25
h/o first diagonal branch PCI, mid LAD PCI x 2
Severe , functionally bicuspid
bioprosthetic #27 AVR 02/25/2025
Bifascicular block
Hypertension
Hyperlipidemia
GERD
Osteoarthritis
ECHO 01/02/2025: EF 55 to 60%, mild LVH, stage II diastolic dysfunction, MAC, mild MR, severe with peak/mean gradient 69/42 mmHg, PADMINI 0.7 cm�, mild AR
Plan:
-s/p CABG x4 In situ HUSAIN to LAD, Ao to RSVG to diagonal, Ao to RSVG to RPDA sequential to RPL B, bioprosthetic #27 AVR, ANKITA clip 02/25/25. POD #1.
-Doing well, no issues noted overnight. Some incisional soreness.
-BP stable. Continue current lopressor. As OP was on amlodipine, Toprol.
-s/p IV lasix x 1 on 02/26. Creat stable at 0.7. Weight 197 lbs.
-Continue aspirin, plavix. Hgb stable at 11.2
-On colchicine 0.3mg daily.
-In SR on review of telemetry. Continue amiodarone.
-Continue post-op care.
Progress Note - Video Network Engineer
Subjective
Date of Service: February 26, 2025
No complaints at this time.
Objective
Labs:
02/26/25 02:07
02/26/25 02:07
Labs
Hgb 11.2 g/dL (13.0-18.0) L 02/26/25 02:07
Hct 32.7 % (39.0-52.0) L 02/26/25 02:07
Plt Count 116 10^3/uL (130-400) L 02/26/25 02:07
PT 18.9 Sec (11.4-14.6) H 02/25/25 11:59
INR 1.53 02/25/25 11:59
APTT 33.7 Sec (23.4-35.0) 02/25/25 11:59
Sodium 138 mmol/L (135-145) 02/26/25 02:07
Potassium 4.4 mmol/L (3.5-5.1) 02/26/25 02:07
BUN 17 mg/dl (9-20) 02/26/25 02:07
Creatinine 0.7 mg/dL (0.7-1.3) 02/26/25 02:07
Glucose 124 mg/dl (70-99) H 02/26/25 02:07
Vital Signs and I&O:
Vital Signs
Temp Pulse Resp BP Pulse Ox
98.2 F 72 16 126/66 95
02/26/25 12:00 02/26/25 12:00 02/26/25 12:00 02/26/25 12:00 02/26/25 12:00
Vital Signs
Temp Pulse Resp BP Pulse Ox
98.2 F 72 16 126/66 95
02/26/25 12:00 02/26/25 12:00 02/26/25 12:00 02/26/25 12:00 02/26/25 12:00
Intake & Output
02/24/25 02/25/25 02/26/25 02/27/25
06:59 06:59 06:59 06:59
Intake Total 2283.5 / 2294.3 146.8 / 146.8
Output Total 1745 / 1835 400 / 400
Balance 538.5 / 459.3 -253.2 / -253.2
Physical Exam
Physical Exam
GEN: No distress, awake, alert, oriented x 3
HEENT: supple, mmm
LUNGS: CTA B/L, no wheezes
CV: Reg, S1/S2, no murmur
EXT: No cyanosis, clubbing, edema
NEURO: Gross non-focal
SKIN: Warm, pink, dry. No rash. Sternotomy incision c/d/i
[2025-02-26] MEDS: FLEXBUMIN 100 IV ×2 (15:56→23:38)
--- NOTE | 2025-02-26 16:06 | PTCARENOTE ---
pt w dizziness while walking w RN. Pt safely returned to chair. VSS. CT EVI made aware. 25% albumin administered as ordered.
[2025-02-26 17:10] LABS: Glucose - Point of Care 147 mg/dl (70-99)
[2025-02-26] MEDS: NOVOLOG FLEXPEN-LOW RESISTANCE SC (17:43)
[2025-02-26] MEDS: REMOVE LIDOCAINE PATCH 1 PATCH REMOVE (20:35)
[2025-02-26] MEDS: DILAUDID 0.25 MG IV (20:41)
--- NOTE | 2025-02-26 21:00 | PTCARENOTE ---
Patient received resting in bed watching television. Patient A+A+Ox3. No neurological deficits noted. No c/o headache, dizziness or lightheadedness. Room air. SpO2 94%. Two Mediastinal chest tubes - Intact and patent - 30 ml red drainage - No
air leak - Dressing intact. Sinus Rhythm. BBC. Heart rate 80's. Blood pressure 129/55 (72). V-Wire 30/10/4.0 Patient with no c/o chest pain, pressure or discomfort. Abdomen soft, nontender, nondistended. Normoactive bowel sounds. No BM.
No c/o nausea. No vomiting. Voiding without difficulty. Sternal incision intact - Surgical adhesive - Open to air. Right groin puncture site - Intact - Ecchymosis. Right lower extremity incision intact - Surgical adhesive - Open to air.
Positive, palpable pulses. Patient with no c/o back or flank pain. Afebrile. Right I.J. Cordis. Assessment as documented.
[2025-02-26] MEDS: LIPITOR 40 MG PO (22:59)
[2025-02-26 23:06] LABS: Glucose - Point of Care 162 mg/dl (70-99)
[2025-02-26] MEDS: NOVOLOG FLEXPEN-LOW RESISTANCE 1 UNITS SC (23:37)
[2025-02-27] VITALS (17 sets, daily range): BP systolic 116–132; BP diastolic 58–86; PULSE 76; O2SAT 97; BMI 29.8
--- NOTE | 2025-02-27 01:30 | PTCARENOTE ---
Patient sleeping without difficulty. 25% Flexbumin IV infused without difficulty. No further changes from previous assessment.
--- NOTE | 2025-02-27 05:00 | PTCARENOTE ---
Patient A+A+Ox3. No neurological deficits noted. No c/o headache, dizziness or lightheadedness. AM lab work collected and sent. Patient to bathroom with assist x1. Voided 150 ml. Washed face. Brushed teeth. OOB to chair. Standing scale
weight 94.1 kg. Assessment/Interventions as documented.
[2025-02-27] MEDS: TYLENOL 1000 MG PO ×3 (05:05→22:46)
[2025-02-27] MEDS: NSS 500 IV (05:05)
[2025-02-27 05:29] LABS: Blood Urea Nitrogen 24 mg/dl (9-20); Calcium 8.0 mg/dl (8.4-10.2); Carbon Dioxide 27 mmol/L (22-30); Chloride 104 mmol/L (98-107); Estimated Creatinine Clearance 85 ml/min; Glucose 123 mg/dl (70-99); Magnesium 2.3 mg/dl (1.6-2.3); Potassium 4.2 mmol/L (3.5-5.1); Sodium 133 mmol/L (135-145); eGFR > 60.00
[2025-02-27 05:59] LABS: Hematocrit 26.3 % (39.0-52.0); Hemoglobin 8.9 g/dL (13.0-18.0); Mean Corp Hgb Conc. 33.8 g/dL (33.0-37.0); Mean Corpuscular Volume 90.4 fL (80.0-94.0); Platelet Count 80 10^3/uL (130-400); Red Cell Dist. Width 13.9 % (11.5-14.5)
[2025-02-27] MEDS: NOVOLOG FLEXPEN-LOW RESISTANCE SC ×4 (07:24→22:55)
--- NOTE | 2025-02-27 07:42 | W.PN.CT ---
Today's Communication / Plan
-
-pod #2
-no issues overnight, no complaints
-Hg is down from 11.2 to 8.9. Platelets down from 116 to 80K - follow
-wt is up 12 lbs from preop - diurese
-Cr is stable 0.8
-CT outputs: 2 meds 130/210 in 12/24 hrs
-current meds (ASA, Plavix, Lipitor, Amio, Lopressor, Protonix)
-encourage IS (upto 2250 so far), ambulate
Assessment / Plan
-
- s/p Surgical aortic valve replacement [27 mm Ma Inspiris Resilia bioprosthesis]; CABG x4 (In situ HUSAIN to LAD, Ao to RSVG to diagonal, Ao to RSVG to RPDA sequential to RPL B); Left atrial appendage exclusion [35 mm device] on 02/25/25 by
Lloyd, pod #2
- Intraop RYAN: LVEF was 65% pre and post procedure with no new regional wma. No prosthetic PVL or AI. Mean gradient across the prosthesis was 6-8 mmHg. His left atrial appendage was also verified to be free of any thrombus or debris preoperatively
and found to be totally occlusive postoperatively.
- Aortic valve stenosis (bicuspid) with multivessel coronary artery disease, status post LAD stenting with in-stent restenosis
- Hypertension
- Hyperlipidemia
- History of COVID infection
- GERD
- DJD
- Pre-existing RBBB/LAFB
- Acute postop blood loss anemia - stable, no transfusion
- Acute postop thrombocytopenia
- Acute postop pulmonary insufficiency/atelectasis
- Acute postop hypovolemia with subsequent hypervolemia
Discussed patient care with: Nursing and Care Team
Subjective
-
Date of Service: February 27, 2025
Objective Data
-
Lab Results
02/27/25 04:43
02/27/25 04:43
PT 18.9 Sec (11.4-14.6) H 02/25/25 11:59
INR 1.53 02/25/25 11:59
APTT 33.7 Sec (23.4-35.0) 02/25/25 11:59
Vital Signs
Vital Signs
Temp Pulse Resp BP Pulse Ox
98.0 F 78 16 130/60 92
02/27/25 04:40 02/27/25 05:00 02/27/25 04:40 02/27/25 04:40 02/27/25 04:40
CT Intake/Output/Weight
02/26/25 02/27/25 02/27/25
18:59 06:59 18:59
Intake Total 146.8 / 836.8 690 / 836.8
Output Total 600 / 1230 630 / 1230
Balance -453.2 / -393.2 60 / -393.2
SaO2: 92
Physical Exam
-
General: Awake and AOx3
Cardiovascular: Regular rate & rhythm, No Murmurs and Rub
Respiratory: Rales (at bases b/l. No wheeze) and Decreased Breath Sounds
Sternum: Stable
Incision: Clean, Dry and Intact
Extremities: Edema +1
Abdomen: soft, nontender, nondistended, + bowel sounds
Data Reviewed
-
Lab Results: Results Reviewed
Medications: Active Meds Reviewed
Chest X-Ray: Report Reviewed and Image Reviewed
ECG: Report Reviewed and Image Reviewed
[2025-02-27] MEDS: NEURONTIN 100 MG PO ×3 (07:54→22:45)
[2025-02-27] MEDS: PROTONIX 40 MG PO (07:54)
[2025-02-27] MEDS: LOPRESSOR 12.5 MG PO ×2 (07:54→20:35)
[2025-02-27] MEDS: MAGNESIUM OXIDE 500 MG PO ×2 (07:54→20:35)
[2025-02-27] MEDS: LASIX 40 MG IV ×2 (07:55→15:23)
[2025-02-27] MEDS: LOW STRENGTH ASPIRIN 81 MG PO (07:55)
[2025-02-27] MEDS: PACERONE 200 MG PO ×3 (07:55→22:45)
[2025-02-27] MEDS: FLEXBUMIN 100 IV (07:55)
[2025-02-27] MEDS: SENOKOT-S 1 TABLET PO ×2 (07:55→20:35)
[2025-02-27] MEDS: COLCHICINE 0.3 MG PO (07:55)
[2025-02-27] MEDS: PLAVIX 75 MG PO (07:55)
[2025-02-27] MEDS: BACTROBAN 2% OINTMENT 1 APPLIC NASAL ×2 (07:56→20:34)
--- NOTE | 2025-02-27 08:12 | PTCARENOTE ---
assumed care of pt from previous shift RN, sinus rhythm on tele, VSS. + peripheral pulses, +1 edema to bilateral lower extremities. Lungs w fine crackles at bilateral bases, pox 98% on RA, coughing and deep breathing encouraged. +bs, tolerating PO
intake, voids spontaneously. Surgical sites stable. Cordis and PIV flush easily. Plan of care reviewed and questions encouraged.
[2025-02-27] MEDS: LIDOCAINE 4% PATCH TOPICAL (08:54)
--- NOTE | 2025-02-27 09:18 | W.PN.UPDATE ---
Update Note
Progress Note Update
No pacing required overnight. One epicardial bipolar ventricular lead removed without difficulty. Bedrest x 1 hour with vital signs every 15 minutes x 1 hour.
--- NOTE | 2025-02-27 09:20 | PTCARENOTE ---
pacing wire pulled by CT EVI, reviewed 1 hr bedrest and frequent VS with pt.
--- NOTE | 2025-02-27 10:30 | PTCARENOTE ---
mediastinal CTs discontinued. pt assisted OOB
--- NOTE | 2025-02-27 10:45 | CM ---
Reviewed chart. Met with Mr. Kang to review discharge plans. He states he is feeling much better today. He states he ambulated in the hallway today. We reviewed a home visit by the Transitional Care Nurse. He is agreeable to a home visit. Prior to
admission he resides with his spouse in a two story home with two steps to enter. He has a full flight of step to get to bedroom/full bathroom. He has a powder room on the first floor. Prior to admission he was independent with ambulation and adls.
He does not have any DME in the home. He has a prescription plan and uses [facility]. His spouse will be home to assist in his care if needed. Medical work-up n progress. The discharge plan is to return home with his spouse and a home visit by the
Transitional Care Nurse when medically stable.
[2025-02-27 12:20] LABS: Glucose - Point of Care 115 mg/dl (70-99)
[2025-02-27] MEDS: FERRLECIT 110 MG IV (13:34)
--- NOTE | 2025-02-27 14:03 | W.PN.CARDCBS ---
Addendum entered and electronically signed by Donald Gramajo MD 02/27/25 14:54:
I saw and examined the patient.
The TRANSIT OPERATOR or PA's note was reviewed and I agree with the note.
Comment: General: Well developed, well nourished in NAD.
Neck: Supple, no JVD, HJR, carotids +2 B/L, no bruits bilaterally.
Heart: Non displaced PMI, RRR, no murmurs, No S3, S4, no rubs.
Lungs: Scattered rhonchi
Sternal dressings noted
Extremities: No clubbing, cyanosis or edema bilaterally.
Neuro: Grossly nonfocal, awake, alert and oriented x3.
Stable cardiology status status post CABG/AVR
Remains in sinus rhythm
Discussed with nursing and CT surgery
Original Note:
Today's Communication / Plan
-
Agree w/ IV lasix
Follow hgb, plt
Continue post op care
Impression / Plan
-
Primary Glass Cutting Machine Feeder: Dr. Gramajo
Assessment:
MV CAD by cath 01/23/2025
s/p CABG x4 (In situ HUSAIN to LAD, Ao to RSVG to diagonal, Ao to RSVG to RPDA sequential to RPL B), ANKITA clip 02/25/25
h/o first diagonal branch PCI, mid LAD PCI x 2
Severe , functionally bicuspid
bioprosthetic #27 AVR 02/25/2025
Bifascicular block
Hypertension
Hyperlipidemia
GERD
Osteoarthritis
Echo 01/02/2025: EF 55 to 60%, mild LVH, stage II diastolic dysfunction, MAC, mild MR, severe with peak/mean gradient 69/42 mmHg, PADMINI 0.7 cm�, mild AR
Plan:
-s/p CABG x4 (In situ HUSAIN to LAD, Ao to RSVG to diagonal, Ao to RSVG to RPDA sequential to RPL B), bioprosthetic #27 AVR, ANKITA clip 02/25/25. POD #2.
-Doing well, no issues noted overnight. Breathing improving.
-BP stable. Continue current lopressor. As OP was on amlodipine, Toprol.
-s/p IV lasix on 02/26 and again on 02/27. Creat stable at 0.8. Weight up to 207 lbs 02/27.
-Continue aspirin, plavix. Hgb dropped, down to 8.9 on 02/27. Continue to follow.
-On colchicine 0.3mg daily.
-In SR on review of telemetry. Continue amiodarone.
-Continue post-op care.
Progress Note - Glass Cutting Machine Feeder
Subjective
Date of Service: February 27, 2025
Feeling better each day
Objective
Labs:
02/27/25 04:43
02/27/25 04:43
Labs
Hgb 8.9 g/dL (13.0-18.0) L D 02/27/25 04:43
Hct 26.3 % (39.0-52.0) L 02/27/25 04:43
Plt Count 80 10^3/uL (130-400) L D 02/27/25 04:43
PT 18.9 Sec (11.4-14.6) H 02/25/25 11:59
INR 1.53 02/25/25 11:59
APTT 33.7 Sec (23.4-35.0) 02/25/25 11:59
Sodium 133 mmol/L (135-145) L 02/27/25 04:43
Potassium 4.2 mmol/L (3.5-5.1) 02/27/25 04:43
BUN 24 mg/dl (9-20) H 02/27/25 04:43
Creatinine 0.8 mg/dL (0.7-1.3) 02/27/25 04:43
Glucose 123 mg/dl (70-99) H 02/27/25 04:43
Vital Signs and I&O:
Vital Signs
Temp Pulse Resp BP Pulse Ox
98.2 F 71 16 121/58 97
02/27/25 12:08 02/27/25 12:00 02/27/25 12:08 02/27/25 11:56 02/27/25 12:08
Vital Signs
Temp Pulse Resp BP Pulse Ox
98.2 F 71 16 121/58 97
02/27/25 12:08 02/27/25 12:00 02/27/25 12:08 02/27/25 11:56 02/27/25 12:08
Intake & Output
02/25/25 02/26/25 02/27/25 02/28/25
06:59 06:59 06:59 06:59
Intake Total 2283.5 / 2294.3 836.8 / 836.8 130 / 130
Output Total 1745 / 1835 1230 / 1230 2150 / 2150
Balance 538.5 / 459.3 -393.2 / -393.2 -2020 /
Physical Exam
Physical Exam
GEN: No distress, awake, alert, oriented x 3
HEENT: supple, mmm
LUNGS: CTA B/L, no wheezes
CV: Reg, S1/S2, no murmur
EXT: No cyanosis or clubbing. +1 edema b/l LE
NEURO: Gross non-focal
SKIN: Warm, pink, dry. No rash. Sternotomy incision c/d/i
[2025-02-27] MEDS: KCL 40 MEQ PO (15:23)
--- NOTE | 2025-02-27 16:07 | PTCARENOTE ---
pt tolerated walk in hallway, VSS, sinus rhythm maintained on tele.
[2025-02-27 17:11] LABS: Glucose - Point of Care 123 mg/dl (70-99)
--- NOTE | 2025-02-27 20:30 | PTCARENOTE ---
Patient received OOB in chair. Patient A+A+Ox3. No neurological deficits noted. Patient ambulating in room and to bathroom by self. Steady gait. No c/o headache, dizziness or lightheadedness. No c/o SOB. Room air. SpO2 95%. Chest tube
dressing intact. Sinus Rhythm with BBC. Heart rate 70-80's. Blood pressure 131/60(78). Patient with no c/o chest pain, pressure or discomfort. Normoactive bowel sounds. No BM. Voiding without difficulty. Positive, palpable pulses. Patient
with no c/o back or flank pain. Sternal incision intact - Surgical adhesive - Open to air. Right groin puncture site - Intact - Ecchymosis. Right lower extremity incision intact - Surgical adhesive - Open to air. Patient to bed. Right I.J.
Cordis. Assessment as documented.
[2025-02-27] MEDS: REMOVE LIDOCAINE PATCH REMOVE (20:35)
[2025-02-27] MEDS: LIPITOR 40 MG PO (22:45)
[2025-02-27 22:55] LABS: Glucose - Point of Care 119 mg/dl (70-99)
[2025-02-28] VITALS (14 sets, daily range): BP systolic 104–149; BP diastolic 58–120; PULSE 77; O2SAT 99–100; BMI 29.1
--- NOTE | 2025-02-28 | PTCARENOTE ---
Patient sleeping without difficulty. No further changes from previous assessment.
[2025-02-28] MEDS: TYLENOL 1000 MG PO ×3 (05:32→22:39)
[2025-02-28 06:08] LABS: Hematocrit 26.1 % (39.0-52.0); Hemoglobin 9.3 g/dL (13.0-18.0); Mean Corp Hgb Conc. 35.6 g/dL (33.0-37.0); Mean Corpuscular Volume 89.4 fL (80.0-94.0); Platelet Count 97 10^3/uL (130-400); Red Cell Dist. Width 13.7 % (11.5-14.5)
[2025-02-28 06:13] LABS: Blood Urea Nitrogen 20 mg/dl (9-20); Calcium 8.3 mg/dl (8.4-10.2); Carbon Dioxide 27 mmol/L (22-30); Chloride 106 mmol/L (98-107); Estimated Creatinine Clearance 97 ml/min; Glucose 107 mg/dl (70-99); Magnesium 2.4 mg/dl (1.6-2.3); Potassium 4.1 mmol/L (3.5-5.1); Sodium 137 mmol/L (135-145); eGFR > 60.00
--- NOTE | 2025-02-28 06:18 | W.PN.CT ---
Addendum entered and electronically signed by Audie Lantigua MD 02/28/25 09:23:
NACE 2266: POD#3 s/p AVR/CABG x 4/ELAA
No major overnight events.� AVSS.� RA.� No gtts/drains.� UO: adequate
-��������� D/C RIJ
-��������� D/C home today
Original Note:
Today's Communication / Plan
-
Plan:
-No major issues overnight. Hemodynamically and neurologically intact
-Off all drip but insulin
-Thrombocytopenia has improved, 80 -> 97. On ASA
-Will transition to home Toprol XL
-Cont. current meds (ASA, Plavix, Lipitor, Amio, Toprol XL, Protonix)
-D/C cordis
-OOB into chair/Ambulate
-Encourage use of IS
-D/C home (wants to go home)
Assessment / Plan
-
- s/p Surgical aortic valve replacement [27 mm Ma Inspiris Resilia bioprosthesis]; CABG x4 (In situ HUSAIN to LAD, Ao to RSVG to diagonal, Ao to RSVG to RPDA sequential to RPL B); Left atrial appendage exclusion [35 mm device] on 02/25/25 by
Lloyd, pod #3
- Intraop RYAN: LVEF was 65% pre and post procedure with no new regional wma. No prosthetic PVL or AI. Mean gradient across the prosthesis was 6-8 mmHg. His left atrial appendage was also verified to be free of any thrombus or debris preoperatively
and found to be totally occlusive postoperatively.
- Aortic valve stenosis (bicuspid) with multivessel coronary artery disease, status post LAD stenting with in-stent restenosis
- Hypertension
- Hyperlipidemia
- History of COVID infection
- GERD
- DJD
- Pre-existing RBBB/LAFB
- Acute postop blood loss anemia - stable, no transfusion
- Acute postop thrombocytopenia
- Acute postop pulmonary insufficiency/atelectasis
- Acute postop hypovolemia with subsequent hypervolemia
Discussed patient care with: Cardiology, Nursing, Respiratory Therapy, Pharmacy and Care Team
Subjective
-
Date of Service: February 28, 2025
Pt c/o mild incisional pain, otherwise feels well. Ambulating without difficulty
Objective Data
-
Lab Results
02/28/25 05:21
02/28/25 05:21
PT 18.9 Sec (11.4-14.6) H 02/25/25 11:59
INR 1.53 02/25/25 11:59
APTT 33.7 Sec (23.4-35.0) 02/25/25 11:59
Vital Signs
Vital Signs
Temp Pulse Resp BP Pulse Ox
98.4 F 71 16 113/63 98
02/27/25 22:40 02/28/25 05:13 02/27/25 22:40 02/28/25 05:13 02/28/25 05:13
CT Intake/Output/Weight
02/27/25 02/27/25 02/28/25
06:59 18:59 06:59
Intake Total 690 / 836.8 140 / 460 320 / 460
Output Total 630 / 1230 2750 / 3150 400 / 3150
Balance 60 / -393.2 -2610 / -2690 -80 / -2690
SaO2: 98 (RA)
Physical Exam
-
General: Awake, Oriented and AOx3
Cardiovascular: Regular rate & rhythm, No Murmurs, No Rub and No Gallop
Respiratory: Decreased Breath Sounds (at bases, otherwise clear)
Sternum: Stable
Incision: Clean, Dry, Intact and Dressing Intact
Extremities: Other (+trace )
Data Reviewed
-
Lab Results: Results Reviewed
Medications: Active Meds Reviewed
Chest X-Ray: Report Reviewed and Image Reviewed
ECG: Report Reviewed and Image Reviewed
--- NOTE | 2025-02-28 06:30 | PTCARENOTE ---
Patient A+A+Ox3. No neurological deficits noted. Patient ambulating by self. AM labs collected and sent. Patient ambulated to lounge then back to room without difficulty. Standing scale weight 92.1 kg. Assessment/Interventions as documented.
--- NOTE | 2025-02-28 08:06 | PTCARENOTE ---
Pt received from outgoing RN, pt aaox4, POD 3 avr & cabg x4, rt IJ cordis, NSR, VSS, RA, ambulating, plan for dced later today.
--- NOTE | 2025-02-28 08:09 | W.DCSUMMARY ---
Discharge Summary
Discharge Data
Date of Admission: 02/25/25
Date of Discharge: 03/01/25
-
Pending Results: No
Hospital Course
Primary care physician: Mychal Peñaloza
Outpatient lay out technician: Donald Gramajo
Inpatient consultants: [facility] Cardiology, pulmonary learning coordinator
Procedures:
1. Aortic valve replacement (Tissue), CABG x 4, left atrial appendage clip
Primary Diagnosis:
1. severe aortic stenosis, functional bicuspid aortic valve with right noncoronary cusp fusion
Secondary Diagnoses:
1. coronary artery disease s/p LAD stents with in stent restenosis
2. Hypertension
3. Hyperlipidemia
4. History of COVID infection
5. GERD
6. DJD
7. Pre-existing RBBB/LAFB
- Acute postop blood loss anemia - stable, no transfusion
- Acute postop thrombocytopenia
- Acute postop pulmonary insufficiency/atelectasis
- Acute postop hypovolemia with subsequent hypervolemia
- Acute postop pericardial rub and suspected pericarditis
- Acute postop paroxysmal atrial fibrillation
HPI: 74-year-old male with known history of aortic stenosis and CAD s/p LAD stenting. Found to have in-stent restenosis and multivessel coronary disease on left heart cath. Patient was electively admitted on 02/25/2025 for aortic valve replacement
and coronary bypass.
Hospital course: Patient was taken to the operating room and underwent aortic valve replacement [#27 mm bioprosthesis], coronary artery bypass grafting x 4 (HUSAIN to LAD, SVG to diagonal, SVG to RPDA sequential to RPL B), and left atrial appendage
exclusion [#35 mm device] due to CHADs-VASc score>2, by Dr. Julio César Lloyd. For further details, please see operative note. Patient required no intraoperative blood products and returned to CVICU on Levophed, Precedex, and insulin. Patient was
successfully extubated the day of surgery and infusions weaned off. Colchicine was initiated at reduced dose of 0.3 mg daily due to con commitment amiodarone administration, for pericardial rub and suspected pericarditis. Aspirin and Plavix were
initiated. Expected acute postop blood loss anemia was treated with ferric gluconate. Left pleural chest tube was removed. Patient required no postoperative temporary pacing and ventricular wires were removed on postoperative day #2. Patient was
diuresed with Lasix 40 mg IV x 2 with resultant urine output of 2150 cc. Chest x-ray remained stable on postoperative day #3. Right IJ cordis was removed. Patient completed steps. He converted to atrial fibrillation x 30 minutes and Amiodarone
dose increased to 400mg BID. Metoprolol increased to home dose. There were no further episodes of atrial fibrillation overnight and patient stable for discharge home. Labs on day of discharge were stable: Hb 9.3; Creat 0.7; K+ 4.2. Amio 200mg BID x
14 days, then decrease to 20mg daily. Patient will be followed by transitional RN team.
Home medication changes:
Colchicine 0.3 mg daily for pericardial rub and suspected pericarditis
Amiodarone 200mg BID x 14 days, then 200mg daily for brief episose paroxysmal A-fib
Aspirin and Plavix for CABG patency
Protonix daily for GI prophylaxis while on Plavix
Gabapentin, Oxycodone, Flexeril for post-op pain management
Discharge Plan
-
Patient Disposition: Home (Routine Discharge)
Discharge Diagnosis/Procedures: AVR, CABG x 4
Condition: Good
Diet: Low Cholesterol and Low Sodium
Activity: No strenuous activity
Driving Restrictions: Not until seen by your Dr
Bathing Restrictions: OK to Shower
Other Services: Cardiac Rehab
Specialty Instructions: Weigh Daily- Call MD for wt gain/loss 3 lbs overnight/5 lbs in 1 week
Referrals:
CT Transitional Care Nurse [Outside] - in one to two days
Referral Note:
The Cardiothoracic Transitional Care Nurse will call you to set up a visit in 1-2 days.
[facility] [Outside]
Referral Note: Cardiac Rehab Orientation appointment is on Sunday03/08/2025@ 10:00pm.
The Cardiac Rehab gym is located on the first floor of the [facility].
Patsy Barrientos PA-C [Specified Professional Personl, Cardiology] - 04/08/25 2:00 pm
Mychal Peñaloza MD [Family Provider, Family Practice] - in four to six weeks
Referral Note: Please make an appointment in four to six weeks.
Julio César Lloyd MD [Active, Cardiac Surgery] - 03/23/25 2:15 pm
Prescriptions:
New
cyclobenzaprine 10 mg Tablet
5 mg PO Q8HPRN PRN (Reason: muscle spasm) Qty: 10 0RF
clopidogrel 75 mg Tablet
75 mg PO DAILY Qty: 30 2RF
pantoprazole 40 mg Tablet,Delayed Release (Dr/Ec)
40 mg PO DAILY Qty: 30 2RF
gabapentin 100 mg Capsule
100 mg PO TID Qty: 30 0RF
oxycodone 5 mg Tablet
5 mg PO Q4HPRN PRN (Reason: severe pain) Qty: 10 0RF
colchicine 0.6 mg Tablet
0.3 mg PO DAILY Qty: 30 2RF
furosemide [Lasix] 20 mg tablet
20 mg PO DAILY Qty: 7 0RF
Rx Instructions:
Take daily for 7 days, then stop
amiodarone 200 mg tablet
200 mg PO BID Qty: 60 1RF
Rx Instructions:
x 14 days, then 200mg daily
Continued
aspirin 81 MG tablet,chewable
81 mg PO DAILY
ascorbic acid (vitamin C) [Vitamin C] 1,000 mg Tablet
1,000 mg PO DAILY
zinc acetate 50 mg (zinc) Capsule
50 mg PO DAILY
metoprolol succinate 50 mg Tablet Extended Release 24 Hr
50 mg PO QPM
coenzyme Q10 [CoQ-10] 100 mg Capsule
300 mg PO HS
glucosamine-chondroitin 250-200 mg Tablet
2 tab PO DAILY
omega-3 fatty acids Capsule
1,400 mg PO DAILY
cholecalciferol (vitamin D3) [Vitamin D3] 125 mcg (5,000 unit) Tablet
125 mcg PO DAILY
mecobalamin (vitamin B12) 5,000 mcg Tablet,Chewable
5,000 mcg PO DAILY
Align (B.longum) 10 million cell Capsule
10,000 cell PO DAILY
magnesium glycinate 120 mg Capsule
240 mg PO HS
Liver Support Function
1 cap PO DAILY
atorvastatin 40 mg Tablet
40 mg PO QPM
saw palmetto 160 mg Capsule
320 mg PO DAILY
turmeric root extract 750 mg Capsule
750 mg PO DAILY
Total Beets
2 gummy PO DAILY
colostrum, bovine
1 dose PO DAILY
amlodipine 2.5 mg tablet
2.5 mg PO HS
Discharge Orders:
Discharge Patient (As Directed); Ordered 03/01/25
Ordered By: Stacey Adrian
Care Plan Goals
Care Plan Goals:
Problem: Readiness for enhanced knowledge related to diagnosis and treatment plan
Goal: Understand your diagnosis and treatment plan needs, including medications if applicable.
Instructions: Know your diagnosis, underlying causes and treatment plan options, including medications if applicable. Consult with your health care team to learn about your diagnosis and treatment plan, including medications if applicable.
Discharge Date and Time
Print Language: FINNISH
[2025-02-28] MEDS: NOVOLOG FLEXPEN-LOW RESISTANCE SC (08:13)
[2025-02-28] MEDS: LIDOCAINE 4% PATCH TOPICAL (08:45)
[2025-02-28] MEDS: PROTONIX 40 MG PO (08:51)
[2025-02-28] MEDS: LOW STRENGTH ASPIRIN 81 MG PO (08:51)
[2025-02-28] MEDS: SENOKOT-S 1 TABLET PO ×2 (08:51→19:35)
[2025-02-28] MEDS: NEURONTIN 100 MG PO ×3 (08:51→22:39)
[2025-02-28] MEDS: PLAVIX 75 MG PO (08:51)
[2025-02-28] MEDS: BACTROBAN 2% OINTMENT 1 APPLIC NASAL ×2 (08:52→21:20)
[2025-02-28] MEDS: PACERONE 200 MG PO ×2 (08:52→11:03)
[2025-02-28] MEDS: TOPROL XL 25 MG PO ×2 (08:52→21:20)
[2025-02-28] MEDS: COLCHICINE 0.3 MG PO (08:52)
--- NOTE | 2025-02-28 09:55 | W.PN.CARDCBS ---
Today's Communication / Plan
-
Stable cardiology status for discharge
Impression / Plan
-
Primary Water Pump Assembler: Dr. Gramajo
Assessment:
MV CAD by cath 01/23/2025
s/p CABG x4 (In situ HUSAIN to LAD, Ao to RSVG to diagonal, Ao to RSVG to RPDA sequential to RPL B), ANKITA clip 02/25/25
h/o first diagonal branch PCI, mid LAD PCI x 2
Severe , functionally bicuspid
bioprosthetic #27 AVR 02/25/2025
Bifascicular block
Hypertension
Hyperlipidemia
GERD
Osteoarthritis
Echo 01/02/2025: EF 55 to 60%, mild LVH, stage II diastolic dysfunction, MAC, mild MR, severe with peak/mean gradient 69/42 mmHg, PADMINI 0.7 cm�, mild AR
Plan:
Stable cardiology status for discharge
Discussed with patient and CT surgery PA
Progress Note - Water Pump Assembler
Subjective
Date of Service: February 28, 2025
No chest pain or shortness of breath
Objective
Labs:
02/28/25 05:21
02/28/25 05:21
Labs
Hgb 9.3 g/dL (13.0-18.0) L 02/28/25 05:21
Hct 26.1 % (39.0-52.0) L 02/28/25 05:21
Plt Count 97 10^3/uL (130-400) L D 02/28/25 05:21
PT 18.9 Sec (11.4-14.6) H 02/25/25 11:59
INR 1.53 02/25/25 11:59
APTT 33.7 Sec (23.4-35.0) 02/25/25 11:59
Sodium 137 mmol/L (135-145) 02/28/25 05:21
Potassium 4.1 mmol/L (3.5-5.1) 02/28/25 05:21
BUN 20 mg/dl (9-20) 02/28/25 05:21
Creatinine 0.7 mg/dL (0.7-1.3) 02/28/25 05:21
Glucose 107 mg/dl (70-99) H 02/28/25 05:21
Vital Signs and I&O:
Vital Signs
Temp Pulse Resp BP Pulse Ox
97.9 F 78 16 129/62 98
02/28/25 08:00 02/28/25 08:16 02/28/25 05:15 02/28/25 08:16 02/28/25 08:23
Vital Signs
Temp Pulse Resp BP Pulse Ox
97.9 F 78 16 129/62 98
02/28/25 08:00 02/28/25 08:16 02/28/25 05:15 02/28/25 08:16 02/28/25 08:23
Intake & Output
02/26/25 02/27/25 02/28/25 03/01/25
06:59 06:59 06:59 06:59
Intake Total 2283.5 / 2294.3 836.8 / 836.8 720 / 720 120 / 120
Output Total 1745 / 1835 1230 / 1230 3600 / 3600
Balance 538.5 / 459.3 -393.2 / -393.2 -2880 / -2880 120 / 120
Physical Exam
Physical Exam
General: Well developed, well nourished in NAD.
Neck: Supple, no JVD, HJR, carotids +2 B/L, no bruits bilaterally.
Heart: Non displaced PMI, RRR, no murmurs, No S3, S4, no rubs.
Lungs: Scattered rhonchi
Sternal dressings noted
Extremities: No clubbing, cyanosis or edema bilaterally.
Neuro: Grossly nonfocal, awake, alert and oriented x3.
--- NOTE | 2025-02-28 10:06 | PTCARENOTE ---
Pt went into afib rate >100 @ 0930, plan was to be dced home but now canceled. Start amio bolus and amio gtt. Pt vss stable, RA, not in distress.
[2025-02-28] MEDS: NSS IV (10:45)
--- NOTE | 2025-02-28 12:14 | PTCARENOTE ---
pt reassessment unchanged from previous, pt brief afib episode but was able to break on his own, increased PO amio 400mg TID, stay overnight till tomorrow possible dced home tomorrow if remain afib free.
[2025-02-28] MEDS: FERRLECIT 110 MG IV (14:13)
--- NOTE | 2025-02-28 15:43 | PTCARENOTE ---
pt reassessment unchanged from previous, vss, ra, nsr, ambulating, rt IJ cordis, PIV x1.
[2025-02-28] MEDS: PACERONE 400 MG PO ×2 (16:17→22:39)
--- NOTE | 2025-02-28 17:04 | PTCARENOTE ---
Patient admitted to IVU. Walking in halls. AO x3. NSR, VSS. Incisions healing and approximated. In chair, call ferguson in reach
[2025-02-28] MEDS: REMOVE LIDOCAINE PATCH REMOVE (19:33)
[2025-02-28] MEDS: FLUSH (NSS) 1 FLUSH IV (19:36)
[2025-02-28] MEDS: CALCIUM GLUCONATE 100 IV (20:20)
[2025-02-28] MEDS: LIPITOR 40 MG PO (22:39)
[2025-02-28] MEDS: NSS 500 IV (22:39)
--- NOTE | 2025-03-01 00:05 | PTCARENOTE ---
Assumed care of patient at change of shift. Tele monitor shows NSR w/ BBBC and occasional PACs. HR in the 60-70's at rest. VSS. Pt denies any pain or SOB. Ambulating self in room w/out difficulty. Denies any dizziness. Sternal precautions
maintained. POC ongoing, call ferguson within reach.
[2025-03-01 03:53] VITALS: BP 132/66
[2025-03-01 04:24] VITALS: BMI 29.2
[2025-03-01 04:34] LABS: Hematocrit 26.6 % (39.0-52.0); Hemoglobin 9.3 g/dL (13.0-18.0); Mean Corp Hgb Conc. 35.0 g/dL (33.0-37.0); Mean Corpuscular Volume 90.8 fL (80.0-94.0); Platelet Count 131 10^3/uL (130-400); Red Cell Dist. Width 13.7 % (11.5-14.5)
[2025-03-01 04:53] LABS: Blood Urea Nitrogen 13 mg/dl (9-20); Calcium 8.3 mg/dl (8.4-10.2); Carbon Dioxide 23 mmol/L (22-30); Chloride 110 mmol/L (98-107); Estimated Creatinine Clearance 97 ml/min; Glucose 99 mg/dl (70-99); Magnesium 2.1 mg/dl (1.6-2.3); Potassium 4.2 mmol/L (3.5-5.1); Sodium 137 mmol/L (135-145); eGFR > 60.00
[2025-03-01] MEDS: TYLENOL 1000 MG PO (05:25)
--- NOTE | 2025-03-01 05:37 | PTCARENOTE ---
Right IJ cordis removed by COTTONSEED MEAT PRESSER Ernesto w/out any complications. Dressing applied to right neck. Patient remains SR HR in the 70-80's. Pt currently ambulating the halls. Denies any dizziness. Eager to go home today.
--- NOTE | 2025-03-01 06:31 | W.PN.CT ---
Addendum entered and electronically signed by Audie Lantigua MD 03/01/25 09:27:
I saw and examined the patient.
The PA's note was reviewed and I agree with the note.
Comment:
No further AF. HD stable.
OK for discharge today
Original Note:
Today's Communication / Plan
-
Plan:
-No major issues overnight. Hemodynamically and neurologically intact
-Off all drips
-Had brief (30 mins) of self-limiting a-fib yesterday morning, none since
-Increase Toprol to home dose of 50 mg QDaily
-Cont. current meds (ASA, Plavix, Lipitor, Amio, Toprol XL, Protonix)
-Thrombocytopenia has resolved 80 -> 97 -> 131. On ASA/Plavix
-F/U 2-vies cxr
-D/C'd cordis this AM
-OOB into chair/Ambulate
-Encourage use of IS
-D/C home
Assessment / Plan
-
- s/p Surgical aortic valve replacement [27 mm Ma Inspiris Resilia bioprosthesis]; CABG x4 (In situ HUSAIN to LAD, Ao to RSVG to diagonal, Ao to RSVG to RPDA sequential to RPL B); Left atrial appendage exclusion [35 mm device] on 02/25/25 by
Lloyd, pod #4
- Intraop RYAN: LVEF was 65% pre and post procedure with no new regional wma. No prosthetic PVL or AI. Mean gradient across the prosthesis was 6-8 mmHg. His left atrial appendage was also verified to be free of any thrombus or debris preoperatively
and found to be totally occlusive postoperatively.
- Aortic valve stenosis (bicuspid) with multivessel coronary artery disease, status post LAD stenting with in-stent restenosis
- Hypertension
- Hyperlipidemia
- History of COVID infection
- GERD
- DJD
- Pre-existing RBBB/LAFB
- Acute postop blood loss anemia - stable, no transfusion
- Acute postop thrombocytopenia
- Acute postop pulmonary insufficiency/atelectasis
- Acute postop hypovolemia with subsequent hypervolemia
- Acute postop brief (30 min) rapid a-fib
Discussed patient care with: Cardiology, Nursing, Respiratory Therapy, Pharmacy and Care Team
Subjective
-
Date of Service: March 01, 2025
Pt c/o mild incisional pain, otherwise feels well
Objective Data
-
Lab Results
03/01/25 04:15
03/01/25 04:15
PT 18.9 Sec (11.4-14.6) H 02/25/25 11:59
INR 1.53 02/25/25 11:59
APTT 33.7 Sec (23.4-35.0) 02/25/25 11:59
Vital Signs
Vital Signs
Temp Pulse Resp BP Pulse Ox
97.9 F 76 18 132/66 98
03/01/25 04:25 03/01/25 05:00 03/01/25 04:25 03/01/25 03:53 03/01/25 04:25
CT Intake/Output/Weight
02/28/25 02/28/25 03/01/25
06:59 18:59 06:59
Intake Total 580 / 720 360 / 1010 650 / 1010
Output Total 850 / 3600 500 / 500
Balance -270 / -2880 -140 / 510 650 / 510
SaO2: 98 (RA)
Physical Exam
-
General: Awake, Oriented and AOx3
Cardiovascular: Regular rate & rhythm, No Murmurs, No Rub and No Gallop
Respiratory: Decreased Breath Sounds (at bases, otherwise clear)
Sternum: Stable
Incision: Clean, Dry, Intact and Dressing Intact
Extremities: Other (+trace edema)
Data Reviewed
-
Lab Results: Results Reviewed
Medications: Active Meds Reviewed
Chest X-Ray: Report Reviewed and Image Reviewed
ECG: Report Reviewed and Image Reviewed
[2025-03-01 07:05] VITALS: BP 150/72
[2025-03-01] MEDS: LIDOCAINE 4% PATCH TOPICAL (08:04)
[2025-03-01] MEDS: BACTROBAN 2% OINTMENT 1 APPLIC NASAL (08:04)
[2025-03-01] MEDS: SENOKOT-S PO (08:04)
[2025-03-01] MEDS: COLCHICINE 0.3 MG PO (08:05)
[2025-03-01] MEDS: MAGNESIUM OXIDE 500 MG PO (08:05)
[2025-03-01] MEDS: TOPROL XL 50 MG PO (08:05)
[2025-03-01] MEDS: PACERONE 400 MG PO (08:05)
[2025-03-01] MEDS: NEURONTIN 100 MG PO (08:06)
[2025-03-01] MEDS: LOW STRENGTH ASPIRIN 81 MG PO (08:06)
[2025-03-01] MEDS: PLAVIX 75 MG PO (08:06)
[2025-03-01] MEDS: PROTONIX 40 MG PO (08:06)
[2025-03-01 10:47] VITALS: BP 132/68
--- NOTE | 2025-03-01 11:22 | PTCARENOTE ---
~[id number]: Handoff report received from nightshift RN. Pt OAx4, NSR BBB 60s, SBP 150s, RA satting 97%. Pt denies pain at this time. Independent in room and with IS, walking halls frequently. Sternal incision WISAM and approximated, RLE insicion MARKETING ANALYST
with skin glue and R groin puncture MARKETING ANALYST. Chest tube sites dressing CDI. All needs met at this time, call ferguson within reach.
~[id number]: patient in room. biju SCOTT and Dr. Lantigua went over post-op/ dc site care instructions and medications with patient and . PIV and tele monitor removed. patint dressing independently. D/c paperwork reviewed with patient and ,
all questions answered. Patient d/c'd in stable condition.
== END 2025-03-01 11:22 | disposition home or self-care (01) | DRG 219 ==
LOC: IVU 05:07
PROVIDERS: Physician Assistant Medical; Physician Assistant Surgical; ADMITTING PHYSICIAN Thoracic Surgery (Cardiothoracic Vascular Surgery); CONSULT PHYSICIAN Internal Medicine; FAMILY PHYSICIAN Family Medicine
PROC: 02100Z9 Bypass Coronary Artery, One Artery from Left Internal Mammary, Open Approach (ICD-10-PCS; 2025-02-25)
PROC: 06BP4ZZ Excision of Right Saphenous Vein, Percutaneous Endoscopic Approach (ICD-10-PCS; 2025-02-25)
PROC: 02RF08Z Replacement of Aortic Valve with Zooplastic Tissue, Open Approach (ICD-10-PCS; 2025-02-25)
PROC: B24BZZ4 Ultrasonography of Heart with Aorta, Transesophageal (ICD-10-PCS; 2025-02-25)
PROC: 021109W Bypass Coronary Artery, Two Arteries from Aorta with Autologous Venous Tissue, Open Approach (ICD-10-PCS; 2025-02-25)
DX: T82.855A Stenosis of coronary artery stent, initial encounter (principal); J95.2 Acute pulmonary insufficiency following nonthoracic surgery; D62 Acute posthemorrhagic anemia; J98.11 Atelectasis; I25.10 Atherosclerotic heart disease of native coronary artery without angina pectoris; I35.0 Nonrheumatic aortic (valve) stenosis; E78.5 Hyperlipidemia, unspecified; I10 Essential (primary) hypertension; Z86.16 Personal history of COVID-19; K21.9 Gastro-esophageal reflux disease without esophagitis; M19.90 Unspecified osteoarthritis, unspecified site; I45.10 Unspecified right bundle-branch block; D69.59 Other secondary thrombocytopenia; E86.1 Hypovolemia; I48.0 Paroxysmal atrial fibrillation; E87.70 Fluid overload, unspecified; Y83.1 Surgical operation with implant of artificial internal device as the cause of abnormal reaction of the patient, or of later complication, without mention of misadventure at the time of the procedure; Z82.49 Family history of ischemic heart disease and other diseases of the circulatory system; Z95.3 Presence of xenogenic heart valve
CPT/HCPCS: 36415; 71045; 80048; 80053; 81003; 81015; 82248; 82330; 82565; 82805; 82810; 82947; 82962; 83036; 83735; 84132; 84302; 84520; 85014; 85018; 85025; 85027; 85049; 85610; 85730; 86850; 86900; 86901; 86920; 87070; 88305; 88311; 93005; 93880; 94002; J2916; P9047

== ENCOUNTER 2025-04-13 10:00 | Outpatient (RCR) | payer MEDICARE, OTHER, SELFPAY | END 2025-04-13 23:59 | disposition home or self-care (01) | LOC: CRHB 10:00 | PROVIDERS: ATTENDING PHYSICIAN Thoracic Surgery (Cardiothoracic Vascular Surgery) | DX: Z95.1 Presence of aortocoronary bypass graft (principal) | CPT/HCPCS: G0422; G0423 ==

== ENCOUNTER 2025-05-13 09:24 | Outpatient (RCR) | payer MEDICARE, OTHER, SELFPAY | END 2025-05-13 23:59 | disposition home or self-care (01) | LOC: CRHB 09:24 | PROVIDERS: ATTENDING PHYSICIAN Internal Medicine Cardiovascular Disease; FAMILY PHYSICIAN Family Medicine | DX: Z95.1 Presence of aortocoronary bypass graft (principal) | CPT/HCPCS: G0422; G0423 ==

== ENCOUNTER 2025-06-08 09:02 | Outpatient (RCR) | payer MEDICARE, OTHER, SELFPAY | END 2025-06-08 23:59 | disposition home or self-care (01) | LOC: CRHB 09:02 | PROVIDERS: ATTENDING PHYSICIAN Internal Medicine Cardiovascular Disease; FAMILY PHYSICIAN Family Medicine | DX: Z95.1 Presence of aortocoronary bypass graft (principal) | CPT/HCPCS: G0422; G0423 ==